=== PATIENT | male | born 1965 | race Caucasian/White ===

== ENCOUNTER 2017-12-28 17:02 | Inpatient (IN) | payer OTHER ==
[2017-12-28 17:42] VITALS: BMI 34.8
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
[2017-12-28] MEDS ORDERED: guaiFENesin/D-METHORPHAN HB 10 ML UNIT-DOSE CUPS PO PRN (20:06)
[2017-12-28] MEDS ORDERED: MENTHOL/PHENOL 1 EACH UD MM PRN (20:06)
[2017-12-28] MEDS ORDERED: LOPERAMIDE HCL 2 MG CAPSULE PO PRN (20:06)
[2017-12-28] MEDS ORDERED: ACETAMINOPHEN 325 MG TABLET (FP) PO PRN (20:06)
[2017-12-28] MEDS ORDERED: MAGNESIUM HYDROX 2400MG/30ML ORAL SUSPENSION 30 ML CUP PO PRN (20:06)
[2017-12-28] MEDS ORDERED: NICOTINE POLACRILEX 2 MG GUM BC PRN (20:06)
[2017-12-28] MEDS ORDERED: MAGNESIUM CITRATE 300 ML BOTTLE PO PRN (20:06)
[2017-12-28] MEDS ORDERED: P-EPHED 60MG/TRIPROLIDI 2.5MG TABLET PO PRN (20:06)
[2017-12-28] MEDS ORDERED: MAG HYDROX/AL HYDROX/SIMETH 30 ML UNIT-DOSE CUP PO PRN (20:06)
[2017-12-28] MEDS ORDERED: TUBERCULIN PPD 5 TU/0.1ML VIAL ID ONE (22:36)
[2017-12-28] MEDS: hydrOXYzine PAMOATE 50 MG CAPSULE (FP) PO PRN (22:38)
[2017-12-28] MEDS: THIAMINE HCL 100 MG TABLET (FP) PO SCH (22:38)
[2017-12-28] MEDS: MELATONIN 5 MG TABLETS PO PRN (22:38)
[2017-12-28] MEDS: FLUTICASONE/SALMETEROL 100 MCG/50 MCG DISKUS IH SCH (22:43)
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
--- NOTE | 2017-12-29 09:49 | EKG ---
Test Reason : Blood Pressure : / mmHG Vent. Rate : 068 BPM Atrial Rate : 068 BPM P-R Int : 158 ms QRS Dur : 092 ms QT Int : 410 ms P-R-T Axes : 028 003 010 degrees QTc Int : 435 ms NORMAL SINUS RHYTHM NORMAL ECG NO PREVIOUS ECGS AVAILABLE Confirmed by JESUS SULLIVAN MD ([id number]) on 12/29/2017 9:49:18 AM Referred By: Confirmed By:JESUS SULLIVAN MD
[2017-12-29] MEDS: NICOTINE 21 MG/24 HOURS TOPICAL PATCH TD SCH (10:06)
[2017-12-29] MEDS: PANTOPRAZOLE 20 MG TABLET (FP) PO SCH (10:06)
[2017-12-29] MEDS: PRENATAL VITAMINS W/ FOLIC ACID TABLET (FP) PO SCH (10:06)
[2017-12-29] MEDS: TAMSULOSIN HCL 0.4 MG CAP.ER.24H (FP) PO SCH (10:06)
[2017-12-29] MEDS: FLUTICASONE/SALMETEROL 100 MCG/50 MCG DISKUS IH SCH ×2 (12:45→21:41)
[2017-12-29] MEDS: PATIENT'S OWN MEDICATION (NON-FORMULARY) (Beclomethasone Dipropionate [Qvar Redihaler] 10. IH SCH ×2 (12:47→21:40)
[2017-12-29 15:35] LABS: HEMATOCRIT 37.9 % (35.4-49); MCH 30.3 pg (25.7-33.7); MCHC 34.3 g/dl (32.0-35.9); MEAN CELL VOLUME 88.3 fl (80-96); MEAN PLT VOLUME 9.2 fl (7.5-11.1); PLATELET COUNT 165 K/MM3 (134-434); RDW 13.2 % (11.9-15.9); WHITE BLOOD COUNT 5.3 K/mm3 (4.0-10.0)
[2017-12-29 17:33] LABS: ALBUMIN 3.7 g/dl (3.4-5.0); ANION GAP 6 (8-16); BLOOD UREA NITROGEN 14 mg/dL (7-18); CALCIUM 8.3 mg/dL (8.5-10.1); CHLORIDE 104 mmol/L (98-107); CO2 29 mmol/L (21-32); GLUCOSE,RANDOM 175 mg/dL (74-106); POTASSIUM 3.7 mmol/L (3.5-5.1); SODIUM 139 mmol/L (136-145)
[2017-12-29 17:38] LABS: ALK PHOS 75 U/L (45-117); BILIRUBIN,TOTAL 0.4 mg/dL (0.2-1.0); CREATININE 0.9 mg/dL (0.7-1.3); SGOT/AST 15 U/L (15-37); SGPT/ALT 14 U/L (12-78); TOT PROT 6.8 g/dl (6.4-8.2)
[2017-12-29] MEDS: OLANZapine 5 MG TABLET PO SCH (21:39)
[2017-12-29] MEDS: MONTELUKAST NA 10 MG TABLET PO SCH (21:39)
[2017-12-29] MEDS: THIAMINE HCL 100 MG TABLET (FP) PO SCH (21:39)
[2017-12-29] MEDS: traZODone HCL 100 MG TABLET (FP) PO SCH (21:39)
[2017-12-29] MEDS: hydrOXYzine PAMOATE 50 MG CAPSULE (FP) PO PRN (21:39)
[2017-12-30] MEDS: TAMSULOSIN HCL 0.4 MG CAP.ER.24H (FP) PO SCH (07:41)
[2017-12-30] MEDS: PRENATAL VITAMINS W/ FOLIC ACID TABLET (FP) PO SCH (10:09)
[2017-12-30] MEDS: PANTOPRAZOLE 20 MG TABLET (FP) PO SCH (10:09)
[2017-12-30] MEDS: PATIENT'S OWN MEDICATION (NON-FORMULARY) (Beclomethasone Dipropionate [Qvar Redihaler] 10. IH SCH ×2 (10:09→21:41)
[2017-12-30] MEDS: FLUTICASONE/SALMETEROL 100 MCG/50 MCG DISKUS IH SCH ×2 (10:10→21:41)
[2017-12-30] MEDS: NICOTINE 21 MG/24 HOURS TOPICAL PATCH TD SCH (10:10)
[2017-12-30 16:03] LABS: URINE APPEARANCE CLEAR; URINE BILIRUBIN NEGATIVE (<2.0 mg/dL); URINE COLOR LTYELLOW; URINE GLUCOSE (UA) NEGATIVE (NEGATIVE); URINE KETONE NEGATIVE (NEGATIVE); URINE LEUK ESTERASE NEGATIVE (NEGATIVE); URINE NITRITE NEGATIVE (NEGATIVE); URINE PROTEIN NEGATIVE (NEGATIVE); URINE UROBILINOGEN NEGATIVE mg/dL (0.2-1.0)
[2017-12-30] MEDS: OLANZapine 5 MG TABLET PO SCH (21:41)
[2017-12-30] MEDS: traZODone HCL 100 MG TABLET (FP) PO SCH (21:41)
[2017-12-30] MEDS: THIAMINE HCL 100 MG TABLET (FP) PO SCH (21:41)
[2017-12-30] MEDS: MONTELUKAST NA 10 MG TABLET PO SCH (21:41)
[2017-12-31] MEDS: TAMSULOSIN HCL 0.4 MG CAP.ER.24H (FP) PO SCH (07:32)
[2017-12-31] MEDS: IBUPROFEN 400 MG TABLET (FP) PO PRN (10:23)
[2017-12-31] MEDS: PATIENT'S OWN MEDICATION (NON-FORMULARY) (Beclomethasone Dipropionate [Qvar Redihaler] 10. IH SCH ×2 (10:23→21:35)
[2017-12-31] MEDS: PANTOPRAZOLE 20 MG TABLET (FP) PO SCH (10:23)
[2017-12-31] MEDS: NICOTINE 21 MG/24 HOURS TOPICAL PATCH TD SCH (10:23)
[2017-12-31] MEDS: FLUTICASONE/SALMETEROL 100 MCG/50 MCG DISKUS IH SCH ×2 (10:23→21:35)
[2017-12-31] MEDS: PRENATAL VITAMINS W/ FOLIC ACID TABLET (FP) PO SCH (10:23)
[2017-12-31] MEDS ORDERED: PT OWN MED DRAWER 7, Y5N ONE (20:15)
[2017-12-31] MEDS: traZODone HCL 100 MG TABLET (FP) PO SCH (21:35)
[2017-12-31] MEDS: MONTELUKAST NA 10 MG TABLET PO SCH (21:35)
[2017-12-31] MEDS: THIAMINE HCL 100 MG TABLET (FP) PO SCH (21:35)
[2017-12-31] MEDS: OLANZapine 5 MG TABLET PO SCH (21:35)
[2017-12-31] MEDS: MELATONIN 5 MG TABLETS PO PRN (21:36)
[2018-01-01] MEDS: TAMSULOSIN HCL 0.4 MG CAP.ER.24H (FP) PO SCH (08:30)
[2018-01-01] MEDS ORDERED: PT OWN MED DRAWER 7, Y5N ONE (08:49)
[2018-01-01] MEDS: PRENATAL VITAMINS W/ FOLIC ACID TABLET (FP) PO SCH (09:59)
[2018-01-01] MEDS: NICOTINE 21 MG/24 HOURS TOPICAL PATCH TD SCH (09:59)
[2018-01-01] MEDS: PANTOPRAZOLE 20 MG TABLET (FP) PO SCH (10:00)
[2018-01-01] MEDS: FLUTICASONE/SALMETEROL 100 MCG/50 MCG DISKUS IH SCH ×2 (10:00→22:09)
[2018-01-01] MEDS: PATIENT'S OWN MEDICATION (NON-FORMULARY) (Beclomethasone Dipropionate [Qvar Redihaler] 10. IH SCH ×2 (10:00→22:09)
[2018-01-01] MEDS: IBUPROFEN 400 MG TABLET (FP) PO PRN (16:52)
[2018-01-01] MEDS: hydrOXYzine PAMOATE 50 MG CAPSULE (FP) PO PRN (16:52)
[2018-01-01] MEDS: MONTELUKAST NA 10 MG TABLET PO SCH (21:32)
[2018-01-01] MEDS: traZODone HCL 100 MG TABLET (FP) PO SCH (21:32)
[2018-01-01] MEDS: THIAMINE HCL 100 MG TABLET (FP) PO SCH (21:32)
[2018-01-01] MEDS: MELATONIN 5 MG TABLETS PO PRN (21:32)
[2018-01-01] MEDS: OLANZapine 5 MG TABLET PO SCH (21:32)
[2018-01-02] MEDS: TAMSULOSIN HCL 0.4 MG CAP.ER.24H (FP) PO SCH (08:45)
[2018-01-02] MEDS: PANTOPRAZOLE 20 MG TABLET (FP) PO SCH (10:03)
[2018-01-02] MEDS: PRENATAL VITAMINS W/ FOLIC ACID TABLET (FP) PO SCH (10:03)
[2018-01-02] MEDS: NICOTINE 21 MG/24 HOURS TOPICAL PATCH TD SCH (10:04)
[2018-01-02] MEDS: FLUTICASONE/SALMETEROL 100 MCG/50 MCG DISKUS IH SCH ×2 (10:04→21:17)
[2018-01-02] MEDS: PATIENT'S OWN MEDICATION (NON-FORMULARY) (Beclomethasone Dipropionate [Qvar Redihaler] 10. IH SCH ×2 (10:04→21:17)
[2018-01-02] MEDS ORDERED: PT OWN MED DRAWER 7, Y5N ONE (18:04)
[2018-01-02] MEDS: THIAMINE HCL 100 MG TABLET (FP) PO SCH (21:17)
[2018-01-02] MEDS: OLANZapine 5 MG TABLET PO SCH (21:17)
[2018-01-02] MEDS: MONTELUKAST NA 10 MG TABLET PO SCH (21:17)
[2018-01-02] MEDS: traZODone HCL 100 MG TABLET (FP) PO SCH (21:17)
[2018-01-03] MEDS: TAMSULOSIN HCL 0.4 MG CAP.ER.24H (FP) PO SCH (08:40)
[2018-01-03] MEDS: PANTOPRAZOLE 20 MG TABLET (FP) PO SCH (09:51)
[2018-01-03] MEDS: PRENATAL VITAMINS W/ FOLIC ACID TABLET (FP) PO SCH (09:51)
[2018-01-03] MEDS: NICOTINE 21 MG/24 HOURS TOPICAL PATCH TD SCH (09:52)
[2018-01-03] MEDS: PATIENT'S OWN MEDICATION (NON-FORMULARY) (Beclomethasone Dipropionate [Qvar Redihaler] 10. IH SCH ×2 (09:52→21:15)
[2018-01-03] MEDS: FLUTICASONE/SALMETEROL 100 MCG/50 MCG DISKUS IH SCH ×2 (09:53→21:15)
[2018-01-03] MEDS: traZODone HCL 100 MG TABLET (FP) PO SCH (21:15)
[2018-01-03] MEDS: THIAMINE HCL 100 MG TABLET (FP) PO SCH (21:15)
[2018-01-03] MEDS: MELATONIN 5 MG TABLETS PO PRN (21:15)
[2018-01-03] MEDS: OLANZapine 5 MG TABLET PO SCH (21:15)
[2018-01-03] MEDS: MONTELUKAST NA 10 MG TABLET PO SCH (21:15)
[2018-01-04] MEDS: TAMSULOSIN HCL 0.4 MG CAP.ER.24H (FP) PO SCH (07:42)
[2018-01-04] MEDS ORDERED: PT OWN MED DRAWER 7, Y5N ONE ×2 (08:43→20:07)
[2018-01-04] MEDS: NICOTINE 21 MG/24 HOURS TOPICAL PATCH TD SCH (09:41)
[2018-01-04] MEDS: PRENATAL VITAMINS W/ FOLIC ACID TABLET (FP) PO SCH (09:41)
[2018-01-04] MEDS: PANTOPRAZOLE 20 MG TABLET (FP) PO SCH (09:41)
[2018-01-04] MEDS: hydrOXYzine PAMOATE 50 MG CAPSULE (FP) PO PRN (09:42)
[2018-01-04] MEDS: PATIENT'S OWN MEDICATION (NON-FORMULARY) (Beclomethasone Dipropionate [Qvar Redihaler] 10. IH SCH ×2 (09:46→21:15)
[2018-01-04] MEDS: FLUTICASONE/SALMETEROL 100 MCG/50 MCG DISKUS IH SCH ×2 (09:46→21:14)
[2018-01-04] MEDS: OLANZapine 5 MG TABLET PO SCH (21:15)
[2018-01-04] MEDS: MONTELUKAST NA 10 MG TABLET PO SCH (21:15)
[2018-01-04] MEDS: THIAMINE HCL 100 MG TABLET (FP) PO SCH (21:15)
[2018-01-04] MEDS: traZODone HCL 100 MG TABLET (FP) PO SCH (21:15)
[2018-01-05] MEDS: TAMSULOSIN HCL 0.4 MG CAP.ER.24H (FP) PO SCH (07:40)
[2018-01-05] MEDS: FLUTICASONE/SALMETEROL 100 MCG/50 MCG DISKUS IH SCH ×2 (09:46→21:10)
[2018-01-05] MEDS: PATIENT'S OWN MEDICATION (NON-FORMULARY) (Beclomethasone Dipropionate [Qvar Redihaler] 10. IH SCH ×2 (09:46→21:10)
[2018-01-05] MEDS: PRENATAL VITAMINS W/ FOLIC ACID TABLET (FP) PO SCH (09:46)
[2018-01-05] MEDS: NICOTINE 21 MG/24 HOURS TOPICAL PATCH TD SCH (09:46)
[2018-01-05] MEDS: PANTOPRAZOLE 20 MG TABLET (FP) PO SCH (09:46)
[2018-01-05] MEDS: THIAMINE HCL 100 MG TABLET (FP) PO SCH (21:10)
[2018-01-05] MEDS: MONTELUKAST NA 10 MG TABLET PO SCH (21:10)
[2018-01-05] MEDS: OLANZapine 5 MG TABLET PO SCH (21:10)
[2018-01-05] MEDS: traZODone HCL 100 MG TABLET (FP) PO SCH (21:10)
[2018-01-06] MEDS: TAMSULOSIN HCL 0.4 MG CAP.ER.24H (FP) PO SCH (08:45)
[2018-01-06] MEDS: NICOTINE 21 MG/24 HOURS TOPICAL PATCH TD SCH (10:05)
[2018-01-06] MEDS: PRENATAL VITAMINS W/ FOLIC ACID TABLET (FP) PO SCH (10:05)
[2018-01-06] MEDS: PANTOPRAZOLE 20 MG TABLET (FP) PO SCH (10:06)
[2018-01-06] MEDS: PATIENT'S OWN MEDICATION (NON-FORMULARY) (Beclomethasone Dipropionate [Qvar Redihaler] 10. IH SCH ×2 (10:06→21:56)
[2018-01-06] MEDS: FLUTICASONE/SALMETEROL 100 MCG/50 MCG DISKUS IH SCH ×2 (10:07→21:56)
[2018-01-06] MEDS: OLANZapine 5 MG TABLET PO SCH (21:55)
[2018-01-06] MEDS: traZODone HCL 100 MG TABLET (FP) PO SCH (21:55)
[2018-01-06] MEDS: MONTELUKAST NA 10 MG TABLET PO SCH (21:55)
[2018-01-06] MEDS: THIAMINE HCL 100 MG TABLET (FP) PO SCH (21:55)
[2018-01-07] MEDS: TAMSULOSIN HCL 0.4 MG CAP.ER.24H (FP) PO SCH (09:00)
[2018-01-07] MEDS: NICOTINE 21 MG/24 HOURS TOPICAL PATCH TD SCH (09:51)
[2018-01-07] MEDS: PANTOPRAZOLE 20 MG TABLET (FP) PO SCH (09:51)
[2018-01-07] MEDS: PRENATAL VITAMINS W/ FOLIC ACID TABLET (FP) PO SCH (09:51)
[2018-01-07] MEDS: FLUTICASONE/SALMETEROL 100 MCG/50 MCG DISKUS IH SCH ×2 (09:52→21:16)
[2018-01-07] MEDS: PATIENT'S OWN MEDICATION (NON-FORMULARY) (Beclomethasone Dipropionate [Qvar Redihaler] 10. IH SCH ×2 (09:52→21:16)
[2018-01-07] MEDS: hydrOXYzine PAMOATE 50 MG CAPSULE (FP) PO PRN (09:53)
[2018-01-07] MEDS: traZODone HCL 100 MG TABLET (FP) PO SCH (21:15)
[2018-01-07] MEDS: THIAMINE HCL 100 MG TABLET (FP) PO SCH (21:15)
[2018-01-07] MEDS: OLANZapine 5 MG TABLET PO SCH (21:16)
[2018-01-07] MEDS: MONTELUKAST NA 10 MG TABLET PO SCH (21:16)
[2018-01-07] MEDS: MELATONIN 5 MG TABLETS PO PRN (21:16)
[2018-01-08] MEDS: TAMSULOSIN HCL 0.4 MG CAP.ER.24H (FP) PO SCH (08:02)
[2018-01-08] MEDS: PANTOPRAZOLE 20 MG TABLET (FP) PO SCH (09:40)
[2018-01-08] MEDS: PRENATAL VITAMINS W/ FOLIC ACID TABLET (FP) PO SCH (09:40)
[2018-01-08] MEDS: FLUTICASONE/SALMETEROL 100 MCG/50 MCG DISKUS IH SCH ×2 (09:41→21:50)
[2018-01-08] MEDS: NICOTINE 21 MG/24 HOURS TOPICAL PATCH TD SCH (09:41)
[2018-01-08] MEDS: PATIENT'S OWN MEDICATION (NON-FORMULARY) (Beclomethasone Dipropionate [Qvar Redihaler] 10. IH SCH ×2 (09:41→21:51)
[2018-01-08] MEDS ORDERED: PT OWN MED DRAWER 7, Y5N ONE (19:41)
[2018-01-08] MEDS: THIAMINE HCL 100 MG TABLET (FP) PO SCH (21:49)
[2018-01-08] MEDS: MONTELUKAST NA 10 MG TABLET PO SCH (21:49)
[2018-01-08] MEDS: OLANZapine 5 MG TABLET PO SCH (21:49)
[2018-01-08] MEDS: traZODone HCL 100 MG TABLET (FP) PO SCH (21:50)
[2018-01-08] MEDS: MELATONIN 5 MG TABLETS PO PRN (21:51)
[2018-01-09] MEDS: TAMSULOSIN HCL 0.4 MG CAP.ER.24H (FP) PO SCH (09:37)
[2018-01-09] MEDS: PRENATAL VITAMINS W/ FOLIC ACID TABLET (FP) PO SCH (09:37)
[2018-01-09] MEDS: NICOTINE 21 MG/24 HOURS TOPICAL PATCH TD SCH (09:37)
[2018-01-09] MEDS: hydrOXYzine PAMOATE 50 MG CAPSULE (FP) PO PRN (09:38)
[2018-01-09] MEDS: PATIENT'S OWN MEDICATION (NON-FORMULARY) (Beclomethasone Dipropionate [Qvar Redihaler] 10. IH SCH ×2 (09:38→21:40)
[2018-01-09] MEDS: FLUTICASONE/SALMETEROL 100 MCG/50 MCG DISKUS IH SCH ×2 (09:38→21:40)
[2018-01-09] MEDS: PANTOPRAZOLE 20 MG TABLET (FP) PO SCH (09:38)
[2018-01-09] MEDS ORDERED: PT OWN MED DRAWER 7, Y5N ONE (19:11)
[2018-01-09] MEDS: OLANZapine 5 MG TABLET PO SCH (21:40)
[2018-01-09] MEDS: traZODone HCL 100 MG TABLET (FP) PO SCH (21:40)
[2018-01-09] MEDS: MONTELUKAST NA 10 MG TABLET PO SCH (21:40)
[2018-01-09] MEDS: THIAMINE HCL 100 MG TABLET (FP) PO SCH (21:40)
[2018-01-09] MEDS: MELATONIN 5 MG TABLETS PO PRN (21:41)
[2018-01-10] MEDS: TAMSULOSIN HCL 0.4 MG CAP.ER.24H (FP) PO SCH (08:41)
[2018-01-10] MEDS: PRENATAL VITAMINS W/ FOLIC ACID TABLET (FP) PO SCH (09:40)
[2018-01-10] MEDS: PANTOPRAZOLE 20 MG TABLET (FP) PO SCH (09:41)
[2018-01-10] MEDS: FLUTICASONE/SALMETEROL 100 MCG/50 MCG DISKUS IH SCH ×2 (09:41→21:17)
[2018-01-10] MEDS: PATIENT'S OWN MEDICATION (NON-FORMULARY) (Beclomethasone Dipropionate [Qvar Redihaler] 10. IH SCH ×2 (09:42→21:17)
[2018-01-10] MEDS: NICOTINE 21 MG/24 HOURS TOPICAL PATCH TD SCH (09:42)
[2018-01-10] MEDS: hydrOXYzine PAMOATE 50 MG CAPSULE (FP) PO PRN (09:43)
[2018-01-10] MEDS: MONTELUKAST NA 10 MG TABLET PO SCH (21:17)
[2018-01-10] MEDS: THIAMINE HCL 100 MG TABLET (FP) PO SCH (21:17)
[2018-01-10] MEDS: traZODone HCL 100 MG TABLET (FP) PO SCH (21:17)
[2018-01-10] MEDS: OLANZapine 5 MG TABLET PO SCH (21:17)
[2018-01-10] MEDS: MELATONIN 5 MG TABLETS PO PRN (21:18)
[2018-01-11] MEDS: TAMSULOSIN HCL 0.4 MG CAP.ER.24H (FP) PO SCH (08:37)
[2018-01-11] MEDS: PANTOPRAZOLE 20 MG TABLET (FP) PO SCH (09:37)
[2018-01-11] MEDS: PRENATAL VITAMINS W/ FOLIC ACID TABLET (FP) PO SCH (09:37)
[2018-01-11] MEDS: hydrOXYzine PAMOATE 50 MG CAPSULE (FP) PO PRN (09:38)
[2018-01-11] MEDS: NICOTINE 21 MG/24 HOURS TOPICAL PATCH TD SCH (10:45)
[2018-01-11] MEDS: PATIENT'S OWN MEDICATION (NON-FORMULARY) (Beclomethasone Dipropionate [Qvar Redihaler] 10. IH SCH ×2 (10:45→21:10)
[2018-01-11] MEDS: FLUTICASONE/SALMETEROL 100 MCG/50 MCG DISKUS IH SCH ×2 (10:45→21:10)
[2018-01-11] MEDS ORDERED: PT OWN MED DRAWER 7, Y5N ONE (20:27)
[2018-01-11] MEDS: THIAMINE HCL 100 MG TABLET (FP) PO SCH (21:09)
[2018-01-11] MEDS: MONTELUKAST NA 10 MG TABLET PO SCH (21:09)
[2018-01-11] MEDS: OLANZapine 5 MG TABLET PO SCH (21:09)
[2018-01-11] MEDS: traZODone HCL 100 MG TABLET (FP) PO SCH (21:09)
[2018-01-12] MEDS: TAMSULOSIN HCL 0.4 MG CAP.ER.24H (FP) PO SCH (08:36)
[2018-01-12] MEDS: PRENATAL VITAMINS W/ FOLIC ACID TABLET (FP) PO SCH (09:36)
[2018-01-12] MEDS: PANTOPRAZOLE 20 MG TABLET (FP) PO SCH (09:36)
[2018-01-12] MEDS: PATIENT'S OWN MEDICATION (NON-FORMULARY) (Beclomethasone Dipropionate [Qvar Redihaler] 10. IH SCH ×2 (09:36→21:51)
[2018-01-12] MEDS: NICOTINE 21 MG/24 HOURS TOPICAL PATCH TD SCH (09:36)
[2018-01-12] MEDS: FLUTICASONE/SALMETEROL 100 MCG/50 MCG DISKUS IH SCH ×2 (09:37→21:51)
[2018-01-12] MEDS ORDERED: PT OWN MED DRAWER 7, Y5N ONE (20:14)
[2018-01-12] MEDS: traZODone HCL 100 MG TABLET (FP) PO SCH (21:50)
[2018-01-12] MEDS: OLANZapine 5 MG TABLET PO SCH (21:51)
[2018-01-12] MEDS: MONTELUKAST NA 10 MG TABLET PO SCH (21:51)
[2018-01-12] MEDS: THIAMINE HCL 100 MG TABLET (FP) PO SCH (21:51)
[2018-01-12] MEDS: MELATONIN 5 MG TABLETS PO PRN (21:52)
[2018-01-13] MEDS: TAMSULOSIN HCL 0.4 MG CAP.ER.24H (FP) PO SCH (07:51)
[2018-01-13] MEDS ORDERED: PT OWN MED DRAWER 7, Y5N ONE (08:35)
[2018-01-13] MEDS: PATIENT'S OWN MEDICATION (NON-FORMULARY) (Beclomethasone Dipropionate [Qvar Redihaler] 10. IH SCH ×2 (09:32→21:17)
[2018-01-13] MEDS: PANTOPRAZOLE 20 MG TABLET (FP) PO SCH (09:32)
[2018-01-13] MEDS: FLUTICASONE/SALMETEROL 100 MCG/50 MCG DISKUS IH SCH ×2 (09:32→21:17)
[2018-01-13] MEDS: PRENATAL VITAMINS W/ FOLIC ACID TABLET (FP) PO SCH (09:32)
[2018-01-13] MEDS: NICOTINE 21 MG/24 HOURS TOPICAL PATCH TD SCH (09:32)
[2018-01-13] MEDS: traZODone HCL 100 MG TABLET (FP) PO SCH (21:16)
[2018-01-13] MEDS: MONTELUKAST NA 10 MG TABLET PO SCH (21:16)
[2018-01-13] MEDS: OLANZapine 5 MG TABLET PO SCH (21:17)
[2018-01-13] MEDS: THIAMINE HCL 100 MG TABLET (FP) PO SCH (21:17)
[2018-01-13] MEDS: MELATONIN 5 MG TABLETS PO PRN (21:19)
[2018-01-14] MEDS: TAMSULOSIN HCL 0.4 MG CAP.ER.24H (FP) PO SCH (07:37)
[2018-01-14] MEDS: NICOTINE 21 MG/24 HOURS TOPICAL PATCH TD SCH (09:36)
[2018-01-14] MEDS: PATIENT'S OWN MEDICATION (NON-FORMULARY) (Beclomethasone Dipropionate [Qvar Redihaler] 10. IH SCH ×2 (09:37→22:58)
[2018-01-14] MEDS: FLUTICASONE/SALMETEROL 100 MCG/50 MCG DISKUS IH SCH ×2 (09:37→23:02)
[2018-01-14] MEDS: PRENATAL VITAMINS W/ FOLIC ACID TABLET (FP) PO SCH (09:37)
[2018-01-14] MEDS: PANTOPRAZOLE 20 MG TABLET (FP) PO SCH (09:37)
[2018-01-14] MEDS: hydrOXYzine PAMOATE 50 MG CAPSULE (FP) PO PRN ×2 (09:38→15:03)
[2018-01-14] MEDS: THIAMINE HCL 100 MG TABLET (FP) PO SCH (22:56)
[2018-01-14] MEDS: OLANZapine 5 MG TABLET PO SCH (22:56)
[2018-01-14] MEDS: MONTELUKAST NA 10 MG TABLET PO SCH (22:56)
[2018-01-14] MEDS: traZODone HCL 100 MG TABLET (FP) PO SCH (22:59)
[2018-01-15] MEDS: TAMSULOSIN HCL 0.4 MG CAP.ER.24H (FP) PO SCH (07:37)
[2018-01-15] MEDS: PRENATAL VITAMINS W/ FOLIC ACID TABLET (FP) PO SCH (09:49)
[2018-01-15] MEDS: PANTOPRAZOLE 20 MG TABLET (FP) PO SCH (09:49)
[2018-01-15] MEDS: PATIENT'S OWN MEDICATION (NON-FORMULARY) (Beclomethasone Dipropionate [Qvar Redihaler] 10. IH SCH ×2 (09:50→23:49)
[2018-01-15] MEDS: NICOTINE 21 MG/24 HOURS TOPICAL PATCH TD SCH (09:50)
[2018-01-15] MEDS: FLUTICASONE/SALMETEROL 100 MCG/50 MCG DISKUS IH SCH ×2 (10:13→23:49)
[2018-01-15] MEDS: THIAMINE HCL 100 MG TABLET (FP) PO SCH (22:35)
[2018-01-15] MEDS: traZODone HCL 100 MG TABLET (FP) PO SCH (22:35)
[2018-01-15] MEDS: MONTELUKAST NA 10 MG TABLET PO SCH (22:35)
[2018-01-15] MEDS: OLANZapine 5 MG TABLET PO SCH (22:35)
[2018-01-16] MEDS: TAMSULOSIN HCL 0.4 MG CAP.ER.24H (FP) PO SCH (07:41)
[2018-01-16] MEDS: PANTOPRAZOLE 20 MG TABLET (FP) PO SCH (09:55)
[2018-01-16] MEDS: PRENATAL VITAMINS W/ FOLIC ACID TABLET (FP) PO SCH (09:55)
[2018-01-16] MEDS: PATIENT'S OWN MEDICATION (NON-FORMULARY) (Beclomethasone Dipropionate [Qvar Redihaler] 10. IH SCH ×2 (09:55→21:17)
[2018-01-16] MEDS: NICOTINE 21 MG/24 HOURS TOPICAL PATCH TD SCH (09:56)
[2018-01-16] MEDS: FLUTICASONE/SALMETEROL 100 MCG/50 MCG DISKUS IH SCH ×2 (10:50→21:17)
[2018-01-16] MEDS ORDERED: PT OWN MED DRAWER 7, Y5N ONE (20:13)
[2018-01-16] MEDS: THIAMINE HCL 100 MG TABLET (FP) PO SCH (21:16)
[2018-01-16] MEDS: traZODone HCL 100 MG TABLET (FP) PO SCH (21:16)
[2018-01-16] MEDS: OLANZapine 5 MG TABLET PO SCH (21:16)
[2018-01-16] MEDS: MONTELUKAST NA 10 MG TABLET PO SCH (21:16)
[2018-01-17] MEDS: PATIENT'S OWN MEDICATION (NON-FORMULARY) (Beclomethasone Dipropionate [Qvar Redihaler] 10. IH SCH ×2 (09:53→21:30)
[2018-01-17] MEDS: FLUTICASONE/SALMETEROL 100 MCG/50 MCG DISKUS IH SCH ×2 (09:53→21:30)
[2018-01-17] MEDS: TAMSULOSIN HCL 0.4 MG CAP.ER.24H (FP) PO SCH (09:53)
[2018-01-17] MEDS: PANTOPRAZOLE 20 MG TABLET (FP) PO SCH (09:53)
[2018-01-17] MEDS: PRENATAL VITAMINS W/ FOLIC ACID TABLET (FP) PO SCH (09:53)
[2018-01-17] MEDS: NICOTINE 21 MG/24 HOURS TOPICAL PATCH TD SCH (09:53)
[2018-01-17] MEDS ORDERED: PT OWN MED DRAWER 7, Y5N ONE (19:16)
[2018-01-17] MEDS: THIAMINE HCL 100 MG TABLET (FP) PO SCH (21:29)
[2018-01-17] MEDS: MONTELUKAST NA 10 MG TABLET PO SCH (21:29)
[2018-01-17] MEDS: OLANZapine 5 MG TABLET PO SCH (21:29)
[2018-01-17] MEDS: traZODone HCL 100 MG TABLET (FP) PO SCH (21:29)
[2018-01-17] MEDS: MELATONIN 5 MG TABLETS PO PRN (21:30)
[2018-01-18 06:49] VITALS: TEMP 98.3
[2018-01-18] MEDS: TAMSULOSIN HCL 0.4 MG CAP.ER.24H (FP) PO SCH (07:31)
[2018-01-18] MEDS: PANTOPRAZOLE 20 MG TABLET (FP) PO SCH (09:29)
[2018-01-18] MEDS: PRENATAL VITAMINS W/ FOLIC ACID TABLET (FP) PO SCH (09:29)
[2018-01-18] MEDS: NICOTINE 21 MG/24 HOURS TOPICAL PATCH TD SCH (09:30)
[2018-01-18] MEDS: PATIENT'S OWN MEDICATION (NON-FORMULARY) (Beclomethasone Dipropionate [Qvar Redihaler] 10. IH SCH ×2 (09:30→22:02)
[2018-01-18] MEDS: FLUTICASONE/SALMETEROL 100 MCG/50 MCG DISKUS IH SCH ×2 (09:30→22:02)
[2018-01-18] MEDS ORDERED: PT OWN MED DRAWER 7, Y5N ONE (19:10)
--- NOTE | 2018-01-18 19:36 | PN ---
Psychiatric Progress Note Vital Signs: Vital Signs Period Temp Pulse Resp BP Sys/Marina Pulse Ox Last 24 Hr 98.3 F 90 18 134/82 Date of Session: 01/18/18 Chief Complaint:: Discharge Note HPI: Patient addressing Opioid Dependence comorbid with Bipolar Disorder, Substance-Induced Mood Disorder and Substance-Induced Sleep Disorder ROS: Asthma, COPD, Hep C, HLD, Seizure Disorder Current Medications: Active Medications Generic Name Dose Route Start Last Admin Trade Name Freq PRN Reason Stop Dose Admin Acetaminophen 650 mg 12/28/17 20:06 12/29/17 10:07 Tylenol - PO 650 mg Q4H PRN Administration FEVER Al Hydroxide/Mg Hydroxide 30 ml 12/28/17 20:06 Mylanta Oral Suspension - PO Q6H PRN DYSPEPSIA Eucalyptus/Menthol/Phenol/Sorbitol 1 each 12/28/17 20:06 Cepastat Lozenge - MM Q4H PRN SORE THROAT Guaifenesin 10 ml 12/28/17 20:06 Robitussin Dm - PO Q6H PRN COUGH Hydroxyzine Pamoate 50 mg 12/28/17 20:06 01/14/18 15:03 Vistaril - PO 50 mg Q4H PRN Administration AGITATION Ibuprofen 400 mg 12/28/17 20:06 01/01/18 16:52 Motrin - PO 400 mg Q6H PRN Administration Pain level 4-6 Loperamide HCl 4 mg 12/28/17 20:06 Imodium - PO Q6H PRN DIARRHEA Magnesium Citrate 300 ml 12/28/17 20:06 Citroma - PO Q48H PRN CONSTIPATION Magnesium Hydroxide 30 ml 12/28/17 20:06 Milk Of Magnesia - PO DAILY PRN CONSTIPATION Melatonin 5 mg 12/28/17 22:00 01/17/18 21:30 Melatonin PO 5 mg HS PRN Administration INSOMNIA Montelukast Sodium 10 mg 12/29/17 22:00 01/17/18 21:29 Singulair - PO 10 mg HS EMANI Administration Nicotine 21 mg 12/29/17 10:00 01/18/18 09:30 Nicoderm Patch - TD Not Given DAILY EMANI Nicotine Polacrilex 2 mg 12/28/17 20:06 Nicorette Gum - BC Q2H PRN NICOTINE REPLACEMENT RX Non-Formulary Medication 10.6 gm 12/28/17 20:12 01/18/18 09:30 Beclomethasone Dipropionate [Qvar Redihaler] IH Not Given BID EMANI Olanzapine 5 mg 12/29/17 22:00 01/17/18 21:29 Zyprexa - PO 5 mg HS EMANI Administration Pantoprazole Sodium 20 mg 12/29/17 10:00 01/18/18 09:29 Protonix - PO 20 mg DAILY EMANI Administration Multivit/Folic Acid/Iron 1 tab 12/29/17 10:00 01/18/18 09:29 Vitamins ([facility]) - PO 1 tab DAILY EMANI Administration Pseudoephedrine/Triprolidine 1 combo 12/28/17 20:06 12/29/17 06:43 Actifed - PO 1 combo TID PRN Administration NASAL CONGESTION Fluticasone/Salmeterol 1 puff 12/28/17 22:00 01/18/18 09:30 Advair 100mcg/50mcg - IH Not Given BID EMANI Tamsulosin HCl 0.4 mg 12/29/17 08:30 01/18/18 07:31 Flomax - PO 0.4 mg DAILY@0830 EMANI Administration Thiamine HCl 100 mg 12/28/17 22:00 01/17/18 21:29 Vitamin B1 - PO 100 mg HS EMANI Administration Trazodone HCl 100 mg 12/29/17 22:00 01/17/18 21:29 Desyrel - PO 100 mg HS EMANI Administration Current Side Effect: No Lab tests ordered: Yes Lab tests reviewed: Yes Provider note:: Patient will complete this program on 01/19/18. He has met his treatment goals and will continue to address his issues in outpatient treatment at [facility] [place] at [address] [place] [id number]. Told feature writer that from his participation in this program, he has learned the importance of surrounding himself with a sober support network in order to maintain abstinence. He responded well to Zyprexa 5 mg po HS and Trazadone 100 mg po HS. Script for 30 days supply of medications will be electronically transmitted to [facility] at [address] [place] [address]. He is stable for discharge on 01/19/18 Total face to face time:: 35 Mental Status Exam - Mental Status Exam Alert and Oriented to: Time, Place, Person Cognitive Function: Fair Patient Appearance: Well Groomed Mood: Hopeful, Euthymic Affect: Appropriate Patient Behavior: Cooperative Speech Pattern: Clear Voice Loudness: Normal Thought Process: Intact Thought Disorder: Not Present Hallucinations: Denies Suicidal Ideation: Denies Homicidal Ideation: Denies Insight/Judgement: Fair Sleep: Fair Appetite: Good Muscle strength/Tone: Normal Gait/Station: Normal Psychiatric Treatment Plan - Problem List (1) Opioid dependence Current Visit: Yes (2) Bipolar disorder Current Visit: Yes (3) Substance induced mood disorder Current Visit: Yes (4) Substance-induced sleep disorder Current Visit: Yes (5) Asthma Current Visit: No Qualifiers: Asthma complication type: unspecified (6) COPD (chronic obstructive pulmonary disease) Current Visit: No Qualifiers: COPD type: unspecified COPD Qualified Code(s): J44.9 - Chronic obstructive pulmonary disease, unspecified (7) Hep C w/o coma, chronic Current Visit: No (8) Hyperlipemia Current Visit: Yes Qualifiers: Hyperlipidemia type: unspecified Qualified Code(s): E78.5 - Hyperlipidemia , unspecified (9) Seizure Current Visit: Yes Initial treatment plan: Patient will be discharged tomorrow and refer to [facility] for outpatient treatment
[2018-01-18] MEDS: OLANZapine 5 MG TABLET PO SCH (22:02)
[2018-01-18] MEDS: THIAMINE HCL 100 MG TABLET (FP) PO SCH (22:02)
[2018-01-18] MEDS: traZODone HCL 100 MG TABLET (FP) PO SCH (22:02)
[2018-01-18] MEDS: MONTELUKAST NA 10 MG TABLET PO SCH (22:02)
[2018-01-18] MEDS: MELATONIN 5 MG TABLETS PO PRN (22:03)
[2018-01-19 06:56] VITALS: BP 141/92; PULSE 93
[2018-01-19] MEDS: TAMSULOSIN HCL 0.4 MG CAP.ER.24H (FP) PO SCH (07:58)
[2018-01-19] MEDS: PATIENT'S OWN MEDICATION (NON-FORMULARY) (Beclomethasone Dipropionate [Qvar Redihaler] 10. IH SCH (09:34)
[2018-01-19] MEDS: FLUTICASONE/SALMETEROL 100 MCG/50 MCG DISKUS IH SCH (09:34)
[2018-01-19] MEDS: PRENATAL VITAMINS W/ FOLIC ACID TABLET (FP) PO SCH (09:34)
[2018-01-19] MEDS: NICOTINE 21 MG/24 HOURS TOPICAL PATCH TD SCH (09:34)
[2018-01-19] MEDS: PANTOPRAZOLE 20 MG TABLET (FP) PO SCH (09:34)
== END 2018-01-19 09:55 | disposition home or self-care (01) | DRG 772 ==
LOC: YASAS 17:02 → Y3W 18:17
PROVIDERS: ADMIT Psychiatry & Neurology Psychiatry; ATTEND Psychiatry & Neurology Psychiatry
PROC: HZ42ZZZ Group Counseling for Substance Abuse Treatment, Cognitive-Behavioral (ICD-10-PCS; principal; 2017-12-28)
DX: F11.20 Opioid dependence, uncomplicated (principal); F31.9 Bipolar disorder, unspecified; F19.24 Other psychoactive substance dependence with psychoactive substance-induced mood disorder; F19.282 Other psychoactive substance dependence with psychoactive substance-induced sleep disorder; F41.9 Anxiety disorder, unspecified; J45.909 Unspecified asthma, uncomplicated; J44.9 Chronic obstructive pulmonary disease, unspecified; E78.5 Hyperlipidemia, unspecified; E78.00 Pure hypercholesterolemia, unspecified; B18.2 Chronic viral hepatitis C; G40.509 Epileptic seizures related to external causes, not intractable, without status epilepticus; K21.9 Gastro-esophageal reflux disease without esophagitis; Z86.19 Personal history of other infectious and parasitic diseases; Z91.5 Personal history of self-harm
CPT/HCPCS: 36415; 80053; 81003; 82962; 85027; 86593; 93005; 93010

== ENCOUNTER 2020-09-30 09:26 | Inpatient (IN) | payer OTHER ==
[2020-09-30] MEDS ORDERED: METHADONE HCL 10 MG TABLET (FOR DETOX USE ONLY) PO ONE (12:17)
[2020-09-30] MEDS ORDERED: chlordiazePOXIDE HCL 25 MG CAPSULE PO PRN (12:17)
[2020-09-30] MEDS ORDERED: MAGNESIUM HYDROX 2400MG/30ML ORAL SUSPENSION 30 ML CUP PO PRN (12:17)
[2020-09-30] MEDS ORDERED: MENTHOL/PHENOL 1 EACH UD MM PRN (12:17)
[2020-09-30] MEDS ORDERED: METHOCARBAMOL 500 MG TABLET PO PRN (12:17)
[2020-09-30] MEDS ORDERED: IBUPROFEN 400 MG TABLET (FP) PO PRN (12:17)
[2020-09-30] MEDS ORDERED: cloNIDine HCL 0.1 MG TABLET PO PRN (12:17)
[2020-09-30] MEDS ORDERED: ACETAMINOPHEN 325 MG TABLET (FP) PO PRN ×2 (12:17)
[2020-09-30] MEDS ORDERED: MAGNESIUM CITRATE 300 ML BOTTLE PO PRN (12:17)
[2020-09-30] MEDS ORDERED: BISMUTH SUBSALICYLATE 262 MG/15 ML BTL PO PRN (12:17)
[2020-09-30] MEDS ORDERED: ONDANSETRON *ODT* 4 MG TABLET SL PRN (12:17)
[2020-09-30 12:32] VITALS: BMI 36.9
[2020-09-30] MEDS ORDERED: METHADONE HCL 10 MG TABLET (FOR DETOX USE ONLY) ONE (13:09)
[2020-09-30] MEDS ORDERED: chlordiazePOXIDE HCL 25 MG CAPSULE ONE (13:09)
[2020-09-30] MEDS: hydrOXYzine PAMOATE 25 MG CAPSULE (FP) PO SCH ×3 (13:35→22:15)
[2020-09-30 14:18] LABS: HEMATOCRIT 40.2 % (35.4-49); MCH 29.9 pg (25.7-33.7); MCHC 34.7 g/dl (32.0-35.9); MEAN CELL VOLUME 86.2 fl (80-96); MEAN PLT VOLUME 8.4 fl (7.5-11.1); PLATELET COUNT 224 K/MM3 (134-434); RBC 4.67 M/mm3 (4.00-5.60); RDW 13.5 % (11.9-15.9); WHITE BLOOD COUNT 7.7 K/mm3 (4.0-10.0)
[2020-09-30 14:22] LABS: BLOOD UREA NITROGEN 13.8 mg/dL (7-18)
[2020-09-30 14:25] LABS: CALCIUM 8.8 mg/dL (8.5-10.1); CREATININE 1.1 mg/dL (0.55-1.3)
[2020-09-30 14:26] LABS: BILIRUBIN,TOTAL 0.6 mg/dL (0.2-1); TOT PROT 7.4 g/dl (6.4-8.2)
[2020-09-30] MEDS: ARIPiprazole 10 MG TABLET PO SCH (14:38)
[2020-09-30] MEDS: MAG HYDROX/AL HYDROX/SIMETH 30 ML UNIT-DOSE CUP PO PRN (14:56)
[2020-09-30] MEDS: chlordiazePOXIDE HCL 25 MG CAPSULE PO SCH ×2 (17:31→22:15)
[2020-09-30] MEDS: traZODone HCL 100 MG TABLET (FP) PO SCH (22:15)
[2020-09-30] MEDS: THIAMINE HCL 100 MG TABLET (FP) PO SCH (22:18)
[2020-09-30] MEDS: MELATONIN 5 MG TABLETS PO SCH (22:18)
[2020-10-01] MEDS: chlordiazePOXIDE HCL 25 MG CAPSULE PO SCH ×4 (05:22→22:38)
[2020-10-01] MEDS: hydrOXYzine PAMOATE 25 MG CAPSULE (FP) PO SCH ×5 (05:23→22:39)
[2020-10-01] MEDS ORDERED: METHADONE HCL 5 MG TABLET (FOR DETOX USE ONLY) ONE (08:56)
[2020-10-01] MEDS ORDERED: METHADONE HCL 10 MG TABLET (FOR DETOX USE ONLY) ONE (08:57)
[2020-10-01] MEDS ORDERED: METHADONE (DETOX) 20 MG, METHADONE (DETOX) 5 MG PO ONE (10:00)
[2020-10-01] MEDS: ARIPiprazole 10 MG TABLET PO SCH (10:06)
[2020-10-01] MEDS: PRENATAL VITAMINS W/ FOLIC ACID TABLET (FP) PO SCH (10:07)
[2020-10-01] MEDS: MAG HYDROX/AL HYDROX/SIMETH 30 ML UNIT-DOSE CUP PO PRN ×2 (16:09→22:41)
[2020-10-01] MEDS: traZODone HCL 100 MG TABLET (FP) PO SCH (22:38)
[2020-10-01] MEDS: THIAMINE HCL 100 MG TABLET (FP) PO SCH (22:39)
[2020-10-01] MEDS: MELATONIN 5 MG TABLETS PO SCH (22:39)
[2020-10-02] MEDS: chlordiazePOXIDE HCL 25 MG CAPSULE PO SCH ×4 (05:31→22:32)
[2020-10-02] MEDS: hydrOXYzine PAMOATE 25 MG CAPSULE (FP) PO SCH ×5 (05:33→22:32)
[2020-10-02] MEDS ORDERED: METHADONE HCL 10 MG TABLET (FOR DETOX USE ONLY) PO ONE (10:00)
[2020-10-02] MEDS: PRENATAL VITAMINS W/ FOLIC ACID TABLET (FP) PO SCH (10:06)
[2020-10-02] MEDS: ARIPiprazole 10 MG TABLET PO SCH (10:07)
[2020-10-02] MEDS ORDERED: ALBUTEROL SO4 HFA INHALER IH ONE (18:38)
[2020-10-02] MEDS: ALBUTEROL SO4 HFA INHALER IH PRN (18:48)
[2020-10-02] MEDS: traZODone HCL 100 MG TABLET (FP) PO SCH (22:32)
[2020-10-02] MEDS: MELATONIN 5 MG TABLETS PO SCH (22:32)
[2020-10-02] MEDS: THIAMINE HCL 100 MG TABLET (FP) PO SCH (22:32)
[2020-10-03] MEDS ORDERED: chlordiazePOXIDE HCL 10 MG CAPSULE PO PRN
[2020-10-03] MEDS: chlordiazePOXIDE HCL 10 MG CAPSULE PO SCH ×4 (05:58→22:03)
[2020-10-03] MEDS: hydrOXYzine PAMOATE 25 MG CAPSULE (FP) PO SCH ×5 (05:58→22:02)
[2020-10-03] MEDS ORDERED: METHADONE HCL 10 MG TABLET (FOR DETOX USE ONLY) ONE (09:38)
[2020-10-03] MEDS ORDERED: METHADONE HCL 5 MG TABLET (FOR DETOX USE ONLY) ONE (09:38)
[2020-10-03] MEDS ORDERED: METHADONE (DETOX) 10 MG, METHADONE (DETOX) 5 MG PO ONE (10:00)
[2020-10-03] MEDS: ARIPiprazole 10 MG TABLET PO SCH (10:32)
[2020-10-03] MEDS: PRENATAL VITAMINS W/ FOLIC ACID TABLET (FP) PO SCH (10:32)
[2020-10-03] MEDS: ALBUTEROL SO4 HFA INHALER IH PRN (15:33)
[2020-10-03] MEDS: MAG HYDROX/AL HYDROX/SIMETH 30 ML UNIT-DOSE CUP PO PRN (16:08)
[2020-10-03] MEDS: THIAMINE HCL 100 MG TABLET (FP) PO SCH (22:02)
[2020-10-03] MEDS: MELATONIN 5 MG TABLETS PO SCH (22:02)
[2020-10-03] MEDS: traZODone HCL 100 MG TABLET (FP) PO SCH (22:02)
[2020-10-04] MEDS: chlordiazePOXIDE HCL 10 MG CAPSULE PO SCH ×2 (05:54→17:50)
[2020-10-04] MEDS: hydrOXYzine PAMOATE 25 MG CAPSULE (FP) PO SCH ×5 (05:54→22:32)
[2020-10-04] MEDS ORDERED: METHADONE HCL 10 MG TABLET (FOR DETOX USE ONLY) PO ONE (10:00)
[2020-10-04] MEDS: ARIPiprazole 10 MG TABLET PO SCH (11:09)
[2020-10-04] MEDS: PRENATAL VITAMINS W/ FOLIC ACID TABLET (FP) PO SCH (11:10)
[2020-10-04] MEDS: MAG HYDROX/AL HYDROX/SIMETH 30 ML UNIT-DOSE CUP PO PRN (20:44)
[2020-10-04] MEDS ORDERED: traZODone HCL 50 MG TABLET (FP) ONE (21:42)
[2020-10-04] MEDS: THIAMINE HCL 100 MG TABLET (FP) PO SCH (22:31)
[2020-10-04] MEDS: traZODone HCL 100 MG TABLET (FP) PO SCH (22:32)
[2020-10-04] MEDS: MELATONIN 5 MG TABLETS PO SCH (22:32)
[2020-10-05] MEDS ORDERED: chlordiazePOXIDE HCL 10 MG CAPSULE PO ONE (05:00)
[2020-10-05] MEDS: hydrOXYzine PAMOATE 25 MG CAPSULE (FP) PO SCH ×5 (05:39→22:21)
[2020-10-05] MEDS ORDERED: METHADONE HCL 5 MG TABLET (FOR DETOX USE ONLY) PO ONE (06:00)
[2020-10-05] MEDS: ARIPiprazole 10 MG TABLET PO SCH (10:06)
[2020-10-05] MEDS: PRENATAL VITAMINS W/ FOLIC ACID TABLET (FP) PO SCH (10:06)
[2020-10-05] MEDS: traZODone HCL 100 MG TABLET (FP) PO SCH (22:21)
[2020-10-05] MEDS: THIAMINE HCL 100 MG TABLET (FP) PO SCH (22:21)
[2020-10-05] MEDS: MELATONIN 5 MG TABLETS PO SCH (22:22)
[2020-10-05 23:28] VITALS: TEMP 97.3
[2020-10-06] MEDS: hydrOXYzine PAMOATE 25 MG CAPSULE (FP) PO SCH (05:58)
[2020-10-06] MEDS ORDERED: METHADONE HCL 5 MG TABLET (FOR DETOX USE ONLY) PO ONE (06:00)
[2020-10-06 07:44] VITALS: BP 114/69; PULSE 55
== END 2020-10-06 08:38 | disposition home or self-care (01) | DRG 773 ==
LOC: YASAS 09:26 → Y6N 12:41
PROVIDERS: ADMIT Allergy & Immunology; ATTEND Allergy & Immunology
PROC: HZ2ZZZZ Detoxification Services for Substance Abuse Treatment (ICD-10-PCS; principal; 2020-09-30)
DX: F11.23 Opioid dependence with withdrawal (principal); F10.230 Alcohol dependence with withdrawal, uncomplicated; F14.10 Cocaine abuse, uncomplicated; F19.282 Other psychoactive substance dependence with psychoactive substance-induced sleep disorder; F19.24 Other psychoactive substance dependence with psychoactive substance-induced mood disorder; F31.9 Bipolar disorder, unspecified; F41.9 Anxiety disorder, unspecified; E78.5 Hyperlipidemia, unspecified; J44.9 Chronic obstructive pulmonary disease, unspecified; B18.2 Chronic viral hepatitis C; Z62.810 Personal history of physical and sexual abuse in childhood; Z86.19 Personal history of other infectious and parasitic diseases; Z86.69 Personal history of other diseases of the nervous system and sense organs; Z56.0 Unemployment, unspecified
CPT/HCPCS: 36415; 80053; 82947; 85027; 86780; 93005; 93010; C9803; U0003

== ENCOUNTER 2021-02-01 11:43 | Inpatient (IN) | payer OTHER ==
[2021-02-01 12:29] VITALS: BMI 37.8
[2021-02-01] MEDS ORDERED: MAG HYDROX/AL HYDROX/SIMETH 30 ML UNIT-DOSE CUP PO PRN (13:01)
[2021-02-01] MEDS ORDERED: MENTHOL/PHENOL 1 EACH UD MM PRN (13:01)
[2021-02-01] MEDS ORDERED: IBUPROFEN 400 MG TABLET (FP) PO PRN (13:01)
[2021-02-01] MEDS ORDERED: ONDANSETRON *ODT* 4 MG TABLET SL PRN (13:01)
[2021-02-01] MEDS ORDERED: MAGNESIUM HYDROX 2400MG/30ML ORAL SUSPENSION 30 ML CUP PO PRN (13:01)
[2021-02-01] MEDS ORDERED: ACETAMINOPHEN 325 MG TABLET (FP) PO PRN ×2 (13:01)
[2021-02-01] MEDS ORDERED: BISMUTH SUBSALICYLATE 524 MG/30 ML PO PRN (13:01)
[2021-02-01] MEDS ORDERED: MAGNESIUM CITRATE 300 ML BOTTLE PO PRN (13:01)
[2021-02-01] MEDS ORDERED: METHADONE HCL 10 MG TABLET (FOR DETOX USE ONLY) PO ONE (13:30)
[2021-02-01] MEDS ORDERED: ALBUTEROL SO4 HFA INHALER IH PRN (13:44)
[2021-02-01] MEDS: hydrOXYzine PAMOATE 25 MG CAPSULE (FP) PO SCH ×3 (13:56→22:06)
[2021-02-01] MEDS: PRENATAL VITAMINS W/ FOLIC ACID TABLET (FP) PO SCH (13:56)
[2021-02-01] MEDS: METHOCARBAMOL 500 MG TABLET PO PRN (13:56)
[2021-02-01] MEDS: cloNIDine HCL 0.1 MG TABLET PO PRN (13:58)
[2021-02-01] MEDS: traZODone HCL 50 MG TABLET (FP) PO SCH (22:06)
[2021-02-01] MEDS: THIAMINE HCL 100 MG TABLET (FP) PO SCH (22:06)
[2021-02-01] MEDS: MELATONIN 5 MG TABLETS PO SCH (22:06)
[2021-02-02] MEDS: hydrOXYzine PAMOATE 25 MG CAPSULE (FP) PO SCH ×5 (05:27→22:57)
[2021-02-02] MEDS: cloNIDine HCL 0.1 MG TABLET PO PRN (06:15)
[2021-02-02] MEDS ORDERED: METHADONE HCL 10 MG TABLET (FOR DETOX USE ONLY) ONE (08:43)
[2021-02-02] MEDS ORDERED: METHADONE HCL 5 MG TABLET (FOR DETOX USE ONLY) ONE (08:43)
[2021-02-02] MEDS: PANTOPRAZOLE 20 MG TABLET PO SCH (08:59)
[2021-02-02] MEDS: PRENATAL VITAMINS W/ FOLIC ACID TABLET (FP) PO SCH (08:59)
[2021-02-02] MEDS: ARIPiprazole 5 MG TABLET PO SCH (09:00)
[2021-02-02] MEDS ORDERED: METHADONE (DETOX) 20 MG, METHADONE (DETOX) 5 MG PO ONE (10:00)
[2021-02-02] MEDS: diazePAM 5 MG TABLET PO PRN ×3 (10:12→20:36)
[2021-02-02 11:39] LABS: BILIRUBIN,TOTAL 0.5 mg/dL (0.2-1); TOT PROT 8.1 g/dl (6.4-8.2)
[2021-02-02 11:40] LABS: ALBUMIN 4.3 g/dl (3.4-5.0); BLOOD UREA NITROGEN 7.8 mg/dL (7-18)
[2021-02-02 11:41] LABS: CALCIUM 9.8 mg/dL (8.5-10.1); HEMATOCRIT 41.3 % (35.4-49); HEMOGLOBIN 14.1 GM/dL (11.7-16.9); MCH 29.7 pg (25.7-33.7); MCHC 34.1 g/dl (32.0-35.9); MEAN CELL VOLUME 87.1 fl (80-96); PLATELET COUNT 222 K/MM3 (134-434); RBC 4.75 M/mm3 (4.00-5.60); RDW 13.1 % (11.9-15.9); WHITE BLOOD COUNT 5.8 K/mm3 (4.0-10.0)
[2021-02-02 11:43] LABS: CREATININE 1.2 mg/dL (0.55-1.3)
[2021-02-02] MEDS: METHOCARBAMOL 500 MG TABLET PO PRN (20:37)
[2021-02-02] MEDS: traZODone HCL 50 MG TABLET (FP) PO SCH (22:20)
[2021-02-02] MEDS: MELATONIN 5 MG TABLETS PO SCH (22:20)
[2021-02-02] MEDS: THIAMINE HCL 100 MG TABLET (FP) PO SCH (22:20)
[2021-02-03] MEDS: diazePAM 5 MG TABLET PO PRN ×5 (01:08→22:37)
[2021-02-03] MEDS: hydrOXYzine PAMOATE 25 MG CAPSULE (FP) PO SCH ×5 (06:48→22:36)
[2021-02-03] MEDS ORDERED: METHADONE HCL 10 MG TABLET (FOR DETOX USE ONLY) PO ONE (10:00)
[2021-02-03] MEDS: METHOCARBAMOL 500 MG TABLET PO PRN (10:07)
[2021-02-03] MEDS: ARIPiprazole 5 MG TABLET PO SCH (10:07)
[2021-02-03] MEDS: PANTOPRAZOLE 20 MG TABLET PO SCH (10:07)
[2021-02-03] MEDS: PRENATAL VITAMINS W/ FOLIC ACID TABLET (FP) PO SCH (10:07)
[2021-02-03] MEDS: traZODone HCL 50 MG TABLET (FP) PO SCH (22:36)
[2021-02-03] MEDS: MELATONIN 5 MG TABLETS PO SCH (22:36)
[2021-02-03] MEDS: THIAMINE HCL 100 MG TABLET (FP) PO SCH (22:36)
[2021-02-04] MEDS: hydrOXYzine PAMOATE 25 MG CAPSULE (FP) PO SCH ×5 (05:49→23:03)
[2021-02-04] MEDS: diazePAM 5 MG TABLET PO PRN ×4 (05:50→18:41)
[2021-02-04] MEDS ORDERED: METHADONE HCL 10 MG TABLET (FOR DETOX USE ONLY) ONE (09:04)
[2021-02-04] MEDS ORDERED: METHADONE HCL 5 MG TABLET (FOR DETOX USE ONLY) ONE (09:05)
[2021-02-04] MEDS ORDERED: METHADONE (DETOX) 10 MG, METHADONE (DETOX) 5 MG PO ONE (10:00)
[2021-02-04] MEDS: ARIPiprazole 5 MG TABLET PO SCH (10:14)
[2021-02-04] MEDS: PRENATAL VITAMINS W/ FOLIC ACID TABLET (FP) PO SCH (10:14)
[2021-02-04] MEDS: PANTOPRAZOLE 20 MG TABLET PO SCH (10:14)
[2021-02-04 15:38] LABS: EPI CELLS 1 /uL (0-25.1); HYALINE CASTS 15 /uL (0-3.1); PH,URINE 6.5 (5.0-8.0); URINE APPEARANCE CLOUDY; URINE BACTERIA 2250 /uL (0-1359); URINE BILIRUBIN NEGATIVE (NEGATIVE); URINE COLOR YELLOW; URINE GLUCOSE (UA) NEGATIVE (NEGATIVE); URINE KETONE NEGATIVE (NEGATIVE); URINE LEUK ESTERASE 2+ (NEGATIVE); URINE NITRITE NEGATIVE (NEGATIVE); URINE PROTEIN NEGATIVE (NEGATIVE); URINE RBC 7 /uL (0-23.9); URINE UROBILINOGEN 0.2 mg/dL (0.2-1.0); URINE WBC 367 /uL (0-25.8)
[2021-02-04] MEDS: traZODone HCL 50 MG TABLET (FP) PO SCH (23:03)
[2021-02-04] MEDS: THIAMINE HCL 100 MG TABLET (FP) PO SCH (23:03)
[2021-02-04] MEDS: MELATONIN 5 MG TABLETS PO SCH (23:03)
[2021-02-05] MEDS: hydrOXYzine PAMOATE 25 MG CAPSULE (FP) PO SCH ×5 (06:01→22:21)
[2021-02-05] MEDS: diazePAM 5 MG TABLET PO PRN (07:21)
[2021-02-05] MEDS: PRENATAL VITAMINS W/ FOLIC ACID TABLET (FP) PO SCH (09:32)
[2021-02-05] MEDS: ARIPiprazole 5 MG TABLET PO SCH (09:32)
[2021-02-05] MEDS: PANTOPRAZOLE 20 MG TABLET PO SCH (09:33)
[2021-02-05] MEDS: METHOCARBAMOL 500 MG TABLET PO PRN ×2 (09:34→22:19)
[2021-02-05] MEDS ORDERED: METHADONE HCL 10 MG TABLET (FOR DETOX USE ONLY) PO ONE (10:00)
[2021-02-05] MEDS: MELATONIN 5 MG TABLETS PO SCH (22:19)
[2021-02-05] MEDS: traZODone HCL 50 MG TABLET (FP) PO SCH (22:19)
[2021-02-05] MEDS: THIAMINE HCL 100 MG TABLET (FP) PO SCH (22:19)
[2021-02-06] MEDS: CEPHALEXIN MONOHYDRATE 500 MG CAPSULE (UD) PO SCH ×2 (00:02→05:57)
[2021-02-06] MEDS: hydrOXYzine PAMOATE 25 MG CAPSULE (FP) PO SCH (05:57)
[2021-02-06] MEDS ORDERED: METHADONE HCL 5 MG TABLET (FOR DETOX USE ONLY) PO ONE (06:00)
[2021-02-06 09:17] VITALS: BP 116/73; PULSE 65; TEMP 96.9
[2021-02-06] MEDS ORDERED: DOXYCYCLINE HYCLATE 100 MG CAPSULE PO SCH (10:00)
== END 2021-02-06 09:59 | disposition other institution (70) | DRG 773 ==
LOC: YASAS 11:43 → Y3N 13:27
PROVIDERS: ADMIT Allergy & Immunology; ATTEND Allergy & Immunology
PROC: HZ2ZZZZ Detoxification Services for Substance Abuse Treatment (ICD-10-PCS; principal; 2021-02-01)
DX: F11.23 Opioid dependence with withdrawal (principal); F10.230 Alcohol dependence with withdrawal, uncomplicated; F14.10 Cocaine abuse, uncomplicated; F19.24 Other psychoactive substance dependence with psychoactive substance-induced mood disorder; F31.9 Bipolar disorder, unspecified; F41.9 Anxiety disorder, unspecified; E78.5 Hyperlipidemia, unspecified; J44.9 Chronic obstructive pulmonary disease, unspecified; N39.0 Urinary tract infection, site not specified; N40.0 Benign prostatic hyperplasia without lower urinary tract symptoms; Z62.810 Personal history of physical and sexual abuse in childhood; E66.9 Obesity, unspecified; Z68.37 Body mass index [BMI] 37.0-37.9, adult; Z86.69 Personal history of other diseases of the nervous system and sense organs; Z86.19 Personal history of other infectious and parasitic diseases; Z91.14 Patient's other noncompliance with medication regimen
CPT/HCPCS: 36415; 80053; 81003; 82947; 85027; 86780; C9803; J0735; U0003; U0005

== ENCOUNTER 2021-02-05 10:44 | Emergency (ER) | payer OTHER ==
[2021-02-05 11:12] VITALS: BMI 38.4
[2021-02-05 11:48] LABS: BASO % 0.6 % (0-2.0); HEMATOCRIT 41.3 % (35.4-49); HEMOGLOBIN 14.4 GM/dL (11.7-16.9); LYMPH % 23.1 % (8-40); MCH 29.4 pg (25.7-33.7); MCHC 34.9 g/dl (32.0-35.9); MEAN CELL VOLUME 84.2 fl (80-96); MEAN PLT VOLUME 7.7 fl (7.5-11.1); NEUT % 66.3 % (42.8-82.8); PLATELET COUNT 217 K/MM3 (134-434); WHITE BLOOD COUNT 9.3 K/mm3 (4.0-10.0)
[2021-02-05 11:57] LABS: INR 1.03 (0.83-1.09); PROTHROMBIN TIME (PATIENT) 12.7 SEC (9.7-13.0)
[2021-02-05 11:59] LABS: ACTIVATED PTT 30.4 SECONDS (25.2-36.5)
[2021-02-05 12:09] LABS: ALBUMIN 3.9 g/dl (3.4-5.0); BLOOD UREA NITROGEN 12.5 mg/dL (7-18); CALCIUM 8.6 mg/dL (8.5-10.1)
[2021-02-05 12:14] LABS: BILIRUBIN,TOTAL 0.3 mg/dL (0.2-1); TOT PROT 7.5 g/dl (6.4-8.2)
[2021-02-05 13:44] LABS: EPI CELLS 16 /uL (0-25.1); HYALINE CASTS 21 /uL (0-3.1); PH,URINE 5.5 (5.0-8.0); URINE APPEARANCE TURBID; URINE BACTERIA 17 /uL (0-1359); URINE BILIRUBIN NEGATIVE (NEGATIVE); URINE COLOR ORANGE; URINE GLUCOSE (UA) NEGATIVE (NEGATIVE); URINE KETONE NEGATIVE (NEGATIVE); URINE LEUK ESTERASE 3+ (NEGATIVE); URINE NITRITE NEGATIVE (NEGATIVE); URINE PROTEIN 3+ (NEGATIVE); URINE UROBILINOGEN 0.2 mg/dL (0.2-1.0); URINE WBC 15684 /uL (0-25.8)
[2021-02-05 14:35] LABS: URINE RBC 450.8 /uL (0-23.9)
[2021-02-05] MEDS ORDERED: CEFTRIAXONE 1 GM in DEXTROSE 5%-WATER - 100 ML IVPB ONE (15:05)
[2021-02-05] MEDS ORDERED: DOXYCYCLINE HYCLATE 100 MG CAPSULE PO ONE ×2 (15:37→15:38)
[2021-02-05 16:21] LABS: SYPHILIS W/ RPR CONF NON-REACTIVE (NONREACTIVE)
[2021-02-05 19:00] VITALS: BP 128/71; PULSE 77; TEMP 98.3
[2021-02-08 01:03] LABS: HIV INTERPRETATION NEGATIVE (NEGATIVE)
== END 2021-02-05 18:31 | disposition home or self-care (01) ==
LOC: JER 10:44
DX: F11.20 Opioid dependence, uncomplicated (principal); R31.9 Hematuria, unspecified
CPT/HCPCS: 36415; 74176-TC; 80053; 81003; 85025; 85610; 85730; 86780; 86850; 86900; 86901; 87086; 87389; 87491; 87591; 87661; 99285-25

== ENCOUNTER 2022-01-11 13:49 | Inpatient (IN) | payer OTHER ==
[2022-01-11] MEDS ORDERED: IBUPROFEN 400 MG TABLET (FP) PO PRN (14:48)
[2022-01-11] MEDS ORDERED: MAG HYDROX/AL HYDROX/SIMETH 30 ML UNIT-DOSE CUP PO PRN (14:48)
[2022-01-11] MEDS ORDERED: MAGNESIUM HYDROX 2400MG/30ML ORAL SUSPENSION 30 ML CUP PO PRN (14:48)
[2022-01-11] MEDS ORDERED: ACETAMINOPHEN 325 MG TABLET (FP) PO PRN ×2 (14:48)
[2022-01-11] MEDS ORDERED: BISMUTH SUBSALICYLATE 524 MG/30 ML PO PRN (14:48)
[2022-01-11] MEDS ORDERED: BUPRENORPHINE HCL 150 MCG, BUPRENORPHINE HCL 75 MCG BC ONE (14:48)
[2022-01-11] MEDS ORDERED: LOPERAMIDE HCL 2 MG CAPSULE PO PRN (14:48)
[2022-01-11] MEDS ORDERED: ONDANSETRON *ODT* 4 MG TABLET SL PRN (14:48)
[2022-01-11] MEDS ORDERED: BUPRENORPHINE HCL 150 MCG, BUPRENORPHINE HCL 75 MCG BC PRN (14:48)
[2022-01-11] MEDS ORDERED: MAGNESIUM CITRATE 300 ML BOTTLE PO PRN (14:48)
[2022-01-11] MEDS ORDERED: cloNIDine HCL 0.1 MG TABLET PO ONE (14:48)
[2022-01-11] MEDS ORDERED: BENZOCAINE/MENTHOL (CHLORASEPTIC ) LOZENGE MM PRN (14:48)
[2022-01-11] MEDS ORDERED: DICYCLOMINE HCL 10 MG CAPSULE PO PRN (14:48)
[2022-01-11 15:13] VITALS: BMI 34.7
[2022-01-11] MEDS ORDERED: BUPRENORPHINE HCL 75 MCG FILM BC ONE (15:57)
[2022-01-11] MEDS ORDERED: BUPRENORPHINE HCL 150 MCG FILM BC ONE (15:57)
[2022-01-11] MEDS: PRENATAL VITAMINS W/ FOLIC ACID TABLET (FP) PO SCH (16:02)
[2022-01-11] MEDS: cloNIDine HCL 0.1 MG TABLET PO PRN ×2 (16:51→22:23)
[2022-01-11] MEDS: METHOCARBAMOL 500 MG TABLET PO PRN (16:51)
[2022-01-11] MEDS: diazePAM 5 MG TABLET PO PRN ×2 (16:51→22:23)
[2022-01-11] MEDS: hydrOXYzine PAMOATE 25 MG CAPSULE (FP) PO SCH ×2 (17:59→22:20)
[2022-01-11] MEDS: THIAMINE HCL 100 MG TABLET (FP) PO SCH (22:20)
[2022-01-11] MEDS: MELATONIN 5 MG TABLETS PO SCH (22:20)
[2022-01-12] MEDS ORDERED: BUPRENORPHINE HCL 150 MCG, BUPRENORPHINE HCL 75 MCG BC PRN
[2022-01-12] MEDS ORDERED: BUPRENORPHINE HCL 150 MCG FILM BC ONE ×2 (04:39→17:16)
[2022-01-12] MEDS ORDERED: BUPRENORPHINE HCL 75 MCG FILM BC ONE ×2 (04:39→17:16)
[2022-01-12] MEDS: BUPRENORPHINE HCL 150 MCG, BUPRENORPHINE HCL 75 MCG BC SCH ×2 (05:01→18:45)
[2022-01-12] MEDS: hydrOXYzine PAMOATE 25 MG CAPSULE (FP) PO SCH ×5 (05:01→22:14)
[2022-01-12] MEDS: diazePAM 5 MG TABLET PO PRN ×3 (06:32→18:45)
[2022-01-12] MEDS ORDERED: ALBUTEROL SO4 HFA INHALER IH PRN (10:16)
[2022-01-12] MEDS: PRENATAL VITAMINS W/ FOLIC ACID TABLET (FP) PO SCH (10:16)
[2022-01-12] MEDS: cloNIDine HCL 0.1 MG TABLET PO PRN (10:16)
[2022-01-12] MEDS: METHOCARBAMOL 500 MG TABLET PO PRN (10:16)
[2022-01-12 10:25] LABS: HEMATOCRIT 40.3 % (35.4-49); HEMOGLOBIN 14.1 GM/dL (11.7-16.9); MCH 29.2 pg (25.7-33.7); MCHC 35.1 g/dl (32.0-35.9); MEAN CELL VOLUME 83.2 fl (80-96); MEAN PLT VOLUME 8.2 fl (7.5-11.1); PLATELET COUNT 190 10^3/uL (134-434); RBC 4.85 M/mm3 (4.00-5.60); RDW 12.9 % (11.9-15.9); WHITE BLOOD COUNT 4.2 K/mm3 (4.0-10.0)
[2022-01-12 10:29] LABS: ALBUMIN 4.1 g/dl (3.4-5.0); BLOOD UREA NITROGEN 9.2 mg/dL (7-18); CALCIUM 9.4 mg/dL (8.5-10.1)
[2022-01-12 10:31] LABS: CREATININE 0.9 mg/dL (0.55-1.3)
[2022-01-12 10:33] LABS: BILIRUBIN,TOTAL 0.6 mg/dL (0.2-1)
[2022-01-12 10:35] LABS: TOT PROT 7.5 g/dl (6.4-8.2)
[2022-01-12] MEDS: THIAMINE HCL 100 MG TABLET (FP) PO SCH (22:14)
[2022-01-12] MEDS: MELATONIN 5 MG TABLETS PO SCH (22:15)
[2022-01-13] MEDS: diazePAM 5 MG TABLET PO PRN ×4 (04:25→22:17)
[2022-01-13] MEDS: BUPRENORPHINE HCL 450 MCG FILM BC SCH ×2 (05:10→17:43)
[2022-01-13] MEDS: hydrOXYzine PAMOATE 25 MG CAPSULE (FP) PO SCH ×5 (05:10→22:17)
[2022-01-13] MEDS: PRENATAL VITAMINS W/ FOLIC ACID TABLET (FP) PO SCH (10:05)
[2022-01-13] MEDS: METHOCARBAMOL 500 MG TABLET PO PRN (10:05)
[2022-01-13] MEDS: cloNIDine HCL 0.1 MG TABLET PO PRN (17:43)
[2022-01-13] MEDS: MELATONIN 5 MG TABLETS PO SCH (22:17)
[2022-01-13] MEDS: THIAMINE HCL 100 MG TABLET (FP) PO SCH (22:17)
[2022-01-14 00:06] LABS: SARS-CoV-2 NAA Not Detected (Not Detected)
[2022-01-14] MEDS: BUPRENORPHINE/NALOXONE 4 MG/1 MG FILM PACKET SL SCH ×2 (05:04→17:16)
[2022-01-14] MEDS: diazePAM 5 MG TABLET PO PRN ×4 (05:06→22:19)
[2022-01-14] MEDS: hydrOXYzine PAMOATE 25 MG CAPSULE (FP) PO SCH ×5 (05:18→22:20)
[2022-01-14] MEDS: PRENATAL VITAMINS W/ FOLIC ACID TABLET (FP) PO SCH (10:10)
[2022-01-14] MEDS: METHOCARBAMOL 500 MG TABLET PO PRN ×2 (10:10→17:16)
[2022-01-14] MEDS: cloNIDine HCL 0.1 MG TABLET PO PRN (17:16)
[2022-01-14] MEDS: MELATONIN 5 MG TABLETS PO SCH (22:20)
[2022-01-14] MEDS: THIAMINE HCL 100 MG TABLET (FP) PO SCH (22:20)
[2022-01-15] MEDS: diazePAM 5 MG TABLET PO PRN (05:00)
[2022-01-15] MEDS: hydrOXYzine PAMOATE 25 MG CAPSULE (FP) PO SCH ×2 (05:01→09:29)
[2022-01-15] MEDS ORDERED: BUPRENORPHINE/NALOXONE 8 MG/2 MG FILM PACKET SL ONE (06:00)
[2022-01-15 09:15] VITALS: BP 123/74; PULSE 70; TEMP 96.8
[2022-01-15] MEDS: PRENATAL VITAMINS W/ FOLIC ACID TABLET (FP) PO SCH (09:29)
== END 2022-01-15 09:18 | disposition other institution (70) | DRG 773 ==
LOC: YASAS 13:49 → Y6N 15:29
PROVIDERS: ADMIT Allergy & Immunology; ATTEND Surgery
PROC: HZ2ZZZZ Detoxification Services for Substance Abuse Treatment (ICD-10-PCS; principal; 2022-01-11)
DX: F10.230 Alcohol dependence with withdrawal, uncomplicated (principal); F11.20 Opioid dependence, uncomplicated; F13.20 Sedative, hypnotic or anxiolytic dependence, uncomplicated; F14.10 Cocaine abuse, uncomplicated; F19.280 Other psychoactive substance dependence with psychoactive substance-induced anxiety disorder; F19.24 Other psychoactive substance dependence with psychoactive substance-induced mood disorder; F31.9 Bipolar disorder, unspecified; F41.9 Anxiety disorder, unspecified; F41.0 Panic disorder [episodic paroxysmal anxiety]; J44.9 Chronic obstructive pulmonary disease, unspecified; E78.5 Hyperlipidemia, unspecified; N40.0 Benign prostatic hyperplasia without lower urinary tract symptoms; Z28.310 Unvaccinated for COVID-19
CPT/HCPCS: 36415; 80053; 85027; 86780; C9803-CS; J0735; U0003; U0005

== ENCOUNTER 2022-06-29 12:27 | Inpatient (IN) | payer OTHER ==
[2022-06-29 13:05] VITALS: BMI 35.4
[2022-06-29] MEDS ORDERED: NALOXONE HCL (KLOXXADO) 8 MG SPRAY NS PRN (14:19)
[2022-06-29] MEDS ORDERED: ACETAMINOPHEN 325 MG TABLET (FP) PO PRN ×2 (14:19)
[2022-06-29] MEDS ORDERED: NICOTINE 10 MG CARTRIDGE (INHALER) IH PRN (14:19)
[2022-06-29] MEDS ORDERED: BENZOCAINE/MENTHOL (CHLORASEPTIC ) LOZENGE MM PRN (14:19)
[2022-06-29] MEDS ORDERED: ONDANSETRON *ODT* 4 MG TABLET SL PRN (14:19)
[2022-06-29] MEDS ORDERED: MAGNESIUM CITRATE 300 ML BOTTLE PO PRN (14:19)
[2022-06-29] MEDS ORDERED: IBUPROFEN 600 MG TABLET (FP) PO PRN (14:19)
[2022-06-29] MEDS ORDERED: BISMUTH SUBSALICYLATE 524 MG/30 ML PO PRN (14:19)
[2022-06-29] MEDS ORDERED: MAGNESIUM HYDROX 2400MG/30ML ORAL SUSPENSION 30 ML CUP PO PRN (14:19)
[2022-06-29] MEDS ORDERED: IBUPROFEN 400 MG TABLET (FP) PO PRN (14:19)
[2022-06-29] MEDS ORDERED: DICYCLOMINE HCL 10 MG CAPSULE PO PRN (14:19)
[2022-06-29] MEDS ORDERED: LOPERAMIDE HCL 2 MG CAPSULE PO PRN (14:19)
[2022-06-29] MEDS ORDERED: ALBUTEROL SO4 HFA INHALER IH PRN (14:22)
[2022-06-29] MEDS ORDERED: hydrOXYzine PAMOATE 25 MG CAPSULE (FP) PO ONE (15:06)
[2022-06-29] MEDS: hydrOXYzine PAMOATE 25 MG CAPSULE (FP) PO PRN (15:09)
[2022-06-29 17:03] LABS: CALCIUM 8.8 mg/dL (8.5-10.1)
[2022-06-29 17:04] LABS: BLOOD UREA NITROGEN 11.6 mg/dL (7-18)
[2022-06-29 17:07] LABS: CREATININE 0.8 mg/dL (0.55-1.3)
[2022-06-29 17:08] LABS: BILIRUBIN,TOTAL 0.3 mg/dL (0.2-1); TOT PROT 7.6 g/dl (6.4-8.2)
[2022-06-29 17:13] LABS: HEMATOCRIT 37.9 % (35.4-49); HEMOGLOBIN 12.8 GM/dL (11.7-16.9); MCHC 33.9 g/dl (32.0-35.9); MEAN CELL VOLUME 85.7 fl (80-96); PLATELET COUNT 214 10^3/uL (134-434); RBC 4.42 M/mm3 (4.00-5.60); RDW 13.1 % (11.9-15.9); WHITE BLOOD COUNT 6.4 K/mm3 (4.0-10.0)
[2022-06-29] MEDS: THIAMINE HCL 100 MG TABLET (FP) PO SCH (22:06)
[2022-06-29] MEDS: MELATONIN 5 MG TABLETS PO SCH (22:07)
[2022-06-29] MEDS: MAG HYDROX/AL HYDROX/SIMETH 30 ML UNIT-DOSE CUP PO PRN (22:35)
[2022-06-30] MEDS: hydrOXYzine PAMOATE 25 MG CAPSULE (FP) PO PRN ×2 (05:07→17:23)
[2022-06-30] MEDS: METHOCARBAMOL 500 MG TABLET PO PRN ×2 (05:07→17:23)
[2022-06-30] MEDS ORDERED: methaDONE HCL 10 MG TABLET (FOR DETOX USE ONLY) PO ONE (10:45)
[2022-06-30] MEDS: diazePAM 5 MG TABLET PO SCH ×3 (10:46→22:33)
[2022-06-30] MEDS: PRENATAL VITAMINS W/ FOLIC ACID TABLET (FP) PO SCH (10:47)
[2022-06-30] MEDS: diazePAM 5 MG TABLET PO PRN ×2 (14:09→22:31)
[2022-06-30] MEDS: cloNIDine HCL 0.1 MG TABLET PO PRN (17:23)
[2022-06-30] MEDS: THIAMINE HCL 100 MG TABLET (FP) PO SCH (22:31)
[2022-06-30] MEDS: MELATONIN 5 MG TABLETS PO SCH (22:31)
[2022-07-01] MEDS: diazePAM 5 MG TABLET PO PRN ×3 (02:21→12:05)
[2022-07-01] MEDS: diazePAM 5 MG TABLET PO SCH ×4 (05:18→22:15)
[2022-07-01] MEDS: PRENATAL VITAMINS W/ FOLIC ACID TABLET (FP) PO SCH (10:11)
[2022-07-01] MEDS: MAG HYDROX/AL HYDROX/SIMETH 30 ML UNIT-DOSE CUP PO PRN (10:12)
[2022-07-01 12:03] LABS: BLOOD UREA NITROGEN 13.2 mg/dL (7-18); CALCIUM 9.4 mg/dL (8.5-10.1)
[2022-07-01 12:07] LABS: CREATININE 0.9 mg/dL (0.55-1.3)
[2022-07-01] MEDS: MELATONIN 5 MG TABLETS PO SCH (22:15)
[2022-07-01] MEDS: THIAMINE HCL 100 MG TABLET (FP) PO SCH (22:15)
[2022-07-01] MEDS: cloNIDine HCL 0.1 MG TABLET PO PRN (22:17)
[2022-07-02] MEDS: diazePAM 5 MG TABLET PO PRN ×4 (01:29→19:57)
[2022-07-02] MEDS: diazePAM 5 MG TABLET PO SCH ×3 (05:02→23:02)
[2022-07-02] MEDS ORDERED: methaDONE HCL 10 MG TABLET (FOR DETOX USE ONLY) PO ONE (10:00)
[2022-07-02] MEDS: PRENATAL VITAMINS W/ FOLIC ACID TABLET (FP) PO SCH (10:12)
[2022-07-02] MEDS: THIAMINE HCL 100 MG TABLET (FP) PO SCH (22:25)
[2022-07-02] MEDS: SUVOREXANT 10 MG TABLET PO PRN (22:27)
[2022-07-02] MEDS: MAG HYDROX/AL HYDROX/SIMETH 30 ML UNIT-DOSE CUP PO PRN (23:34)
[2022-07-03] MEDS: diazePAM 5 MG TABLET PO PRN ×4 (01:03→22:29)
[2022-07-03] MEDS: diazePAM 5 MG TABLET PO SCH ×2 (05:26→17:02)
[2022-07-03] MEDS: PRENATAL VITAMINS W/ FOLIC ACID TABLET (FP) PO SCH (10:19)
[2022-07-03] MEDS: hydrOXYzine PAMOATE 25 MG CAPSULE (FP) PO PRN (10:20)
[2022-07-03] MEDS: METHOCARBAMOL 500 MG TABLET PO PRN (10:20)
[2022-07-03] MEDS: SUVOREXANT 10 MG TABLET PO PRN (22:23)
[2022-07-03] MEDS: THIAMINE HCL 100 MG TABLET (FP) PO SCH (22:23)
[2022-07-04] MEDS: hydrOXYzine PAMOATE 25 MG CAPSULE (FP) PO PRN ×2 (05:22→10:08)
[2022-07-04] MEDS ORDERED: diazePAM 5 MG TABLET PO ONE (06:00)
[2022-07-04 08:11] VITALS: RESP 18
[2022-07-04 09:27] VITALS: BP 137/79; PULSE 82; TEMP 96.9
[2022-07-04] MEDS ORDERED: methaDONE HCL 10 MG TABLET (FOR DETOX USE ONLY) PO ONE (10:00)
[2022-07-04] MEDS: PRENATAL VITAMINS W/ FOLIC ACID TABLET (FP) PO SCH (10:07)
[2022-07-04] MEDS: METHOCARBAMOL 500 MG TABLET PO PRN (10:08)
== END 2022-07-04 11:34 | disposition home or self-care (01) | DRG 773 ==
LOC: YASAS 12:27 → Y6N 15:06
PROVIDERS: ADMIT Allergy & Immunology; ATTEND Surgery
PROC: HZ2ZZZZ Detoxification Services for Substance Abuse Treatment (ICD-10-PCS; principal; 2022-06-29)
DX: F11.23 Opioid dependence with withdrawal (principal); F10.230 Alcohol dependence with withdrawal, uncomplicated; F13.10 Sedative, hypnotic or anxiolytic abuse, uncomplicated; F19.282 Other psychoactive substance dependence with psychoactive substance-induced sleep disorder; F19.280 Other psychoactive substance dependence with psychoactive substance-induced anxiety disorder; F19.24 Other psychoactive substance dependence with psychoactive substance-induced mood disorder; F31.9 Bipolar disorder, unspecified; G47.00 Insomnia, unspecified; I10 Essential (primary) hypertension; J44.9 Chronic obstructive pulmonary disease, unspecified; N40.0 Benign prostatic hyperplasia without lower urinary tract symptoms; J30.9 Allergic rhinitis, unspecified; R73.9 Hyperglycemia, unspecified; Z62.810 Personal history of physical and sexual abuse in childhood; Z86.69 Personal history of other diseases of the nervous system and sense organs; Z86.19 Personal history of other infectious and parasitic diseases; Z28.310 Unvaccinated for COVID-19; Z28.9 Immunization not carried out for unspecified reason
CPT/HCPCS: 36415; 80048; 80053; 82947; 82962; 85027; 86780; C9803-CS; U0003; U0005

== ENCOUNTER 2022-08-31 09:53 | Inpatient (IN) | payer OTHER ==
[2022-08-31 12:32] VITALS: BMI 36.4
[2022-08-31] MEDS ORDERED: IBUPROFEN 600 MG TABLET (FP) PO PRN (12:47)
[2022-08-31] MEDS ORDERED: MAGNESIUM HYDROX 2400MG/30ML ORAL SUSPENSION 30 ML CUP PO PRN (12:47)
[2022-08-31] MEDS ORDERED: BISMUTH SUBSALICYLATE 524 MG/30 ML PO PRN (12:47)
[2022-08-31] MEDS ORDERED: cloNIDine HCL 0.1 MG TABLET PO PRN ×2 (12:47→15:10)
[2022-08-31] MEDS ORDERED: BENZOCAINE/MENTHOL (CHLORASEPTIC ) LOZENGE MM PRN (12:47)
[2022-08-31] MEDS ORDERED: ACETAMINOPHEN 325 MG TABLET (FP) PO PRN ×2 (12:47)
[2022-08-31] MEDS ORDERED: NALOXONE HCL (KLOXXADO) 8 MG SPRAY NS PRN (12:47)
[2022-08-31] MEDS ORDERED: ONDANSETRON *ODT* 4 MG TABLET SL PRN (12:47)
[2022-08-31] MEDS ORDERED: LOPERAMIDE HCL 2 MG CAPSULE PO PRN (12:47)
[2022-08-31] MEDS ORDERED: IBUPROFEN 400 MG TABLET (FP) PO PRN (12:47)
[2022-08-31] MEDS ORDERED: DICYCLOMINE HCL 10 MG CAPSULE PO PRN (12:47)
[2022-08-31] MEDS ORDERED: POLYETHYLENE GLYCOL (HEALTHYLAX) 3350 17 GM PACKET PO PRN (12:47)
[2022-08-31] MEDS ORDERED: NICOTINE 10 MG CARTRIDGE (INHALER) IH PRN (12:47)
[2022-08-31] MEDS ORDERED: ALBUTEROL SO4 HFA INHALER IH PRN (12:50)
[2022-08-31] MEDS ORDERED: chlordiazePOXIDE HCL 25 MG CAPSULE PO PRN (12:59)
[2022-08-31] MEDS ORDERED: methaDONE HCL 10 MG TABLET (FOR DETOX USE ONLY) PO ONE (13:30)
[2022-08-31] MEDS ORDERED: cloNIDine HCL 0.1 MG TABLET PO ONE (14:00)
[2022-08-31] MEDS ORDERED: methaDONE HCL 10 MG TABLET (FOR DETOX USE ONLY) ONE (14:46)
[2022-08-31] MEDS: PRENATAL VITAMINS W/ FOLIC ACID TABLET (FP) PO SCH (15:04)
[2022-08-31] MEDS: hydrOXYzine PAMOATE 25 MG CAPSULE (FP) PO PRN (15:04)
[2022-08-31] MEDS ORDERED: cloNIDine-TTS 0.1 MG/24 HRS PATCH.TDWK TD SCH (16:00)
[2022-08-31] MEDS: chlordiazePOXIDE HCL 25 MG CAPSULE PO SCH ×2 (17:15→22:16)
[2022-08-31 18:02] LABS: HEMOGLOBIN 13.9 GM/dL (11.7-16.9); MCH 28.1 pg (25.7-33.7); MCHC 33.1 g/dl (32.0-35.9); MEAN CELL VOLUME 84.9 fl (80-96); PLATELET COUNT 237 10^3/uL (134-434); RBC 4.95 M/mm3 (4.00-5.60); RDW 13.6 % (11.9-15.9); WHITE BLOOD COUNT 6.7 K/mm3 (4.0-10.0)
[2022-08-31 18:10] LABS: CALCIUM 9.2 mg/dL (8.5-10.1)
[2022-08-31 18:11] LABS: ALBUMIN 4.3 g/dl (3.4-5.0)
[2022-08-31 18:16] LABS: BILIRUBIN,TOTAL 0.5 mg/dL (0.2-1); TOT PROT 8.1 g/dl (6.4-8.2)
[2022-08-31] MEDS ORDERED: MELATONIN 5 MG TABLETS PO SCH (22:00)
[2022-08-31] MEDS: THIAMINE HCL 100 MG TABLET (FP) PO SCH (22:16)
[2022-09-01] MEDS: chlordiazePOXIDE HCL 25 MG CAPSULE PO SCH ×4 (05:32→22:27)
[2022-09-01] MEDS: METHOCARBAMOL 500 MG TABLET PO PRN ×2 (05:33→10:06)
[2022-09-01] MEDS: hydrOXYzine PAMOATE 25 MG CAPSULE (FP) PO PRN (10:06)
[2022-09-01] MEDS: PRENATAL VITAMINS W/ FOLIC ACID TABLET (FP) PO SCH (11:09)
[2022-09-01] MEDS: NICOTINE 7 MG/24 HOURS TOPICAL PATCH TD SCH (11:35)
[2022-09-01] MEDS: MAG HYDROX/AL HYDROX/SIMETH 30 ML UNIT-DOSE CUP PO PRN (19:55)
[2022-09-01] MEDS: THIAMINE HCL 100 MG TABLET (FP) PO SCH (22:28)
[2022-09-01] MEDS: SUVOREXANT 10 MG TABLET PO PRN (22:30)
[2022-09-02] MEDS: chlordiazePOXIDE HCL 25 MG CAPSULE PO SCH ×4 (05:30→22:06)
[2022-09-02] MEDS ORDERED: methaDONE HCL 10 MG TABLET (FOR DETOX USE ONLY) PO ONE (10:00)
[2022-09-02] MEDS: PRENATAL VITAMINS W/ FOLIC ACID TABLET (FP) PO SCH (10:11)
[2022-09-02] MEDS: NICOTINE 7 MG/24 HOURS TOPICAL PATCH TD SCH (10:11)
[2022-09-02] MEDS: hydrOXYzine PAMOATE 25 MG CAPSULE (FP) PO PRN (10:12)
[2022-09-02] MEDS: METHOCARBAMOL 500 MG TABLET PO PRN (10:12)
[2022-09-02] MEDS: THIAMINE HCL 100 MG TABLET (FP) PO SCH (22:05)
[2022-09-02] MEDS: SUVOREXANT 10 MG TABLET PO PRN (22:08)
[2022-09-03] MEDS ORDERED: chlordiazePOXIDE HCL 10 MG CAPSULE PO PRN
[2022-09-03] MEDS: chlordiazePOXIDE HCL 10 MG CAPSULE PO SCH ×4 (05:15→22:33)
[2022-09-03] MEDS: METHOCARBAMOL 500 MG TABLET PO PRN ×2 (05:16→17:29)
[2022-09-03] MEDS: hydrOXYzine PAMOATE 25 MG CAPSULE (FP) PO PRN (05:17)
[2022-09-03] MEDS: NICOTINE 7 MG/24 HOURS TOPICAL PATCH TD SCH (10:15)
[2022-09-03] MEDS: PRENATAL VITAMINS W/ FOLIC ACID TABLET (FP) PO SCH (10:15)
[2022-09-03] MEDS: SUVOREXANT 10 MG TABLET PO PRN (22:31)
[2022-09-03] MEDS: THIAMINE HCL 100 MG TABLET (FP) PO SCH (22:31)
[2022-09-04] MEDS ORDERED: chlordiazePOXIDE HCL 10 MG CAPSULE PO SCH (05:00)
[2022-09-04 09:57] VITALS: BP 141/97; PULSE 70; RESP 18; TEMP 98.2
[2022-09-04] MEDS ORDERED: LACTULOSE 20 GM/30 ML UDC (FOR ORAL USE ONLY) PO SCH (10:00)
[2022-09-04] MEDS ORDERED: methaDONE HCL 10 MG TABLET (FOR DETOX USE ONLY) PO ONE (10:00)
[2022-09-04] MEDS: METHOCARBAMOL 500 MG TABLET PO PRN (10:23)
[2022-09-04] MEDS: PRENATAL VITAMINS W/ FOLIC ACID TABLET (FP) PO SCH (10:25)
[2022-09-04] MEDS: NICOTINE 7 MG/24 HOURS TOPICAL PATCH TD SCH (10:25)
[2022-09-04] MEDS: MAG HYDROX/AL HYDROX/SIMETH 30 ML UNIT-DOSE CUP PO PRN (10:58)
[2022-09-05] MEDS ORDERED: chlordiazePOXIDE HCL 10 MG CAPSULE PO ONE (05:00)
== END 2022-09-04 12:05 | disposition home or self-care (01) | DRG 773 ==
LOC: YASAS 09:53 → Y6N 12:55
PROVIDERS: ADMIT Allergy & Immunology; ATTEND Surgery
PROC: HZ2ZZZZ Detoxification Services for Substance Abuse Treatment (ICD-10-PCS; principal; 2022-08-31)
DX: F11.23 Opioid dependence with withdrawal (principal); F10.230 Alcohol dependence with withdrawal, uncomplicated; F19.282 Other psychoactive substance dependence with psychoactive substance-induced sleep disorder; F19.280 Other psychoactive substance dependence with psychoactive substance-induced anxiety disorder; F19.24 Other psychoactive substance dependence with psychoactive substance-induced mood disorder; F31.9 Bipolar disorder, unspecified; F41.9 Anxiety disorder, unspecified; E78.5 Hyperlipidemia, unspecified; I10 Essential (primary) hypertension; J44.9 Chronic obstructive pulmonary disease, unspecified; J45.20 Mild intermittent asthma, uncomplicated; J30.2 Other seasonal allergic rhinitis; N40.0 Benign prostatic hyperplasia without lower urinary tract symptoms; R79.89 Other specified abnormal findings of blood chemistry; Z86.19 Personal history of other infectious and parasitic diseases; Z86.69 Personal history of other diseases of the nervous system and sense organs; Z28.310 Unvaccinated for COVID-19; Z28.9 Immunization not carried out for unspecified reason
CPT/HCPCS: 36415; 80053; 82140; 83036; 85027; 86780; C9803-CS; U0003; U0005

== ENCOUNTER 2023-07-12 10:42 | Inpatient (IN) | payer OTHER ==
[2023-07-12 13:21] VITALS: BMI 33.6
[2023-07-12] MEDS ORDERED: BENZOCAINE/MENTHOL (CHLORASEPTIC ) LOZENGE MM PRN (14:20)
[2023-07-12] MEDS ORDERED: LOPERAMIDE HCL 2 MG CAPSULE PO PRN (14:20)
[2023-07-12] MEDS ORDERED: MAGNESIUM HYDROX 2400MG/30ML ORAL SUSPENSION 30 ML CUP PO PRN (14:20)
[2023-07-12] MEDS ORDERED: guaiFENesin 600 MG TABLET.ER (FP) PO PRN (14:20)
[2023-07-12] MEDS ORDERED: DICYCLOMINE HCL 10 MG CAPSULE PO PRN (14:20)
[2023-07-12] MEDS ORDERED: ONDANSETRON *ODT* 4 MG TABLET SL PRN (14:20)
[2023-07-12] MEDS ORDERED: MAG HYDROX/AL HYDROX/SIMETH 30 ML UNIT-DOSE CUP PO PRN (14:20)
[2023-07-12] MEDS ORDERED: POLYETHYLENE GLYCOL (HEALTHYLAX) 3350 17 GM PACKET PO PRN (14:20)
[2023-07-12] MEDS ORDERED: NALOXONE HCL (KLOXXADO) 8 MG SPRAY NS PRN (14:20)
[2023-07-12] MEDS ORDERED: ACETAMINOPHEN 325 MG TABLET (FP) PO PRN (14:20)
[2023-07-12] MEDS ORDERED: IBUPROFEN 400 MG TABLET (FP) PO PRN (14:20)
[2023-07-12] MEDS ORDERED: METHOCARBAMOL 500 MG TABLET PO PRN (14:20)
[2023-07-12] MEDS ORDERED: NALOXONE HCL 0.4 MG/ML VIAL IM PRN (14:20)
[2023-07-12] MEDS ORDERED: diazePAM 5 MG TABLET PO PRN (14:26)
[2023-07-12] MEDS ORDERED: methaDONE HCL 10 MG TABLET (FOR DETOX USE ONLY) PO ONE (14:26)
[2023-07-12] MEDS: BISMUTH SUBSALICYLATE 262 MG/15 ML BTL PO PRN (14:36)
[2023-07-12] MEDS ORDERED: methaDONE HCL 10 MG TABLET (FOR DETOX USE ONLY) ONE (14:45)
[2023-07-12] MEDS: cloNIDine HCL 0.1 MG TABLET PO PRN (14:49)
[2023-07-12] MEDS: IBUPROFEN 600 MG TABLET (FP) PO PRN (14:50)
[2023-07-12] MEDS ORDERED: cloNIDine HCL 0.1 MG TABLET ONE (14:54)
[2023-07-12] MEDS ORDERED: IBUPROFEN 600 MG TABLET (FP) PO ONE (14:55)
[2023-07-12] MEDS ORDERED: ALBUTEROL SO4 HFA INHALER IH PRN (15:42)
[2023-07-12] MEDS: LORazepam 2 MG TABLET PO SCH ×2 (16:54→22:17)
[2023-07-12] MEDS ORDERED: diazePAM 5 MG TABLET PO SCH (17:00)
[2023-07-12] MEDS ORDERED: MELATONIN 5 MG TABLETS PO SCH (22:00)
[2023-07-12] MEDS: THIAMINE HCL 100 MG TABLET (FP) PO SCH (22:17)
[2023-07-13] MEDS: LORazepam 2 MG TABLET PO SCH ×4 (05:51→22:06)
[2023-07-13] MEDS: LORazepam 1 MG TABLET PO PRN ×2 (09:10→14:31)
[2023-07-13] MEDS: PRENATAL VITAMINS W/ FOLIC ACID TABLET (FP) PO SCH (09:12)
[2023-07-13] MEDS ORDERED: ALBUTEROL SO4 HFA INHALER IH PRN (10:24)
[2023-07-13 10:30] LABS: HEMATOCRIT 40.7 % (35.4-49); HEMOGLOBIN 14.1 GM/dL (11.7-16.9); MCH 28.9 pg (25.7-33.7); MCHC 34.6 g/dl (32.0-35.9); MEAN CELL VOLUME 83.6 fl (80-96); MEAN PLT VOLUME 8.5 fl (7.5-11.1); PLATELET COUNT 188 10^3/uL (134-434); RBC 4.87 M/mm3 (4.00-5.60); RDW 13.9 % (11.9-15.9); WHITE BLOOD COUNT 4.5 K/mm3 (4.0-10.0)
[2023-07-13 14:20] LABS: CHLORIDE 105 mmol/L (98-107); POTASSIUM 4.1 mmol/L (3.5-5.1); SODIUM 138 mmol/L (136-145)
[2023-07-13 14:22] LABS: ALBUMIN 3.9 g/dl (3.4-5.0); ANION GAP 4 mmol/L (4-13); BLOOD UREA NITROGEN 11.3 mg/dL (7-18); CALCIUM 8.8 mg/dL (8.5-10.1); CO2 29 mmol/L (21-32)
[2023-07-13 14:23] LABS: GLUCOSE,RANDOM 108 mg/dL (74-106)
[2023-07-13 14:25] LABS: CREATININE 0.8 mg/dL (0.55-1.3); SGOT/AST 11 U/L (15-37); SGPT/ALT 16 U/L (13-61)
[2023-07-13 14:27] LABS: BILIRUBIN,TOTAL 0.7 mg/dL (0.2-1); TOT PROT 7.3 g/dl (6.4-8.2)
[2023-07-13 14:28] LABS: ALK PHOS 69 U/L (45-117)
[2023-07-13] MEDS: SUVOREXANT 10 MG TABLET PO PRN (22:06)
[2023-07-13] MEDS: cloNIDine HCL 0.1 MG TABLET PO PRN (22:06)
[2023-07-13] MEDS: THIAMINE HCL 100 MG TABLET (FP) PO SCH (22:06)
[2023-07-14] MEDS: LORazepam 1 MG TABLET PO SCH ×4 (05:08→22:20)
[2023-07-14] MEDS ORDERED: diazePAM 5 MG TABLET PO SCH (06:00)
[2023-07-14] MEDS: LORazepam 1 MG TABLET PO PRN ×3 (08:46→19:20)
[2023-07-14] MEDS ORDERED: methaDONE HCL 10 MG TABLET (FOR DETOX USE ONLY) PO ONE (10:00)
[2023-07-14] MEDS: PRENATAL VITAMINS W/ FOLIC ACID TABLET (FP) PO SCH (10:28)
[2023-07-14] MEDS: BISMUTH SUBSALICYLATE 262 MG/15 ML BTL PO PRN (12:23)
[2023-07-14] MEDS: THIAMINE HCL 100 MG TABLET (FP) PO SCH (22:20)
[2023-07-14] MEDS: SUVOREXANT 10 MG TABLET PO PRN (22:22)
[2023-07-15] MEDS ORDERED: LORazepam 0.5 MG TABLET PO PRN
[2023-07-15] MEDS: LORazepam 0.5 MG TABLET PO SCH ×4 (05:51→22:16)
[2023-07-15] MEDS ORDERED: diazePAM 5 MG TABLET PO SCH (06:00)
[2023-07-15] MEDS: PRENATAL VITAMINS W/ FOLIC ACID TABLET (FP) PO SCH (10:15)
[2023-07-15] MEDS: IBUPROFEN 600 MG TABLET (FP) PO PRN ×2 (10:17→17:06)
[2023-07-15] MEDS: THIAMINE HCL 100 MG TABLET (FP) PO SCH (22:16)
[2023-07-15] MEDS: SUVOREXANT 10 MG TABLET PO PRN (22:17)
[2023-07-16] MEDS ORDERED: LORazepam 0.5 MG TABLET PO ONE ×3 (05:00→13:45)
[2023-07-16] MEDS ORDERED: diazePAM 5 MG TABLET PO ONE (06:00)
[2023-07-16] MEDS ORDERED: methaDONE HCL 10 MG TABLET (FOR DETOX USE ONLY) PO ONE (10:00)
[2023-07-16] MEDS: PRENATAL VITAMINS W/ FOLIC ACID TABLET (FP) PO SCH (10:04)
[2023-07-16] MEDS: IBUPROFEN 600 MG TABLET (FP) PO PRN (10:09)
[2023-07-16] MEDS: THIAMINE HCL 100 MG TABLET (FP) PO SCH (22:17)
[2023-07-17] MEDS: BISMUTH SUBSALICYLATE 262 MG/15 ML BTL PO PRN (07:36)
[2023-07-17] MEDS ORDERED: cloNIDine HCL 0.1 MG TABLET PO PRN (08:47)
[2023-07-17 08:59] VITALS: BP 154/104; PULSE 81; RESP 16; TEMP 98
[2023-07-17] MEDS: PRENATAL VITAMINS W/ FOLIC ACID TABLET (FP) PO SCH (09:13)
[2023-07-17] MEDS: amLODIPine BESYLATE 10 MG TABLET (FP) PO SCH ×2 (09:13→09:15)
== END 2023-07-17 09:18 | disposition home or self-care (01) | DRG 773 ==
LOC: YASAS 10:42 → Y6N 15:15
PROVIDERS: ADMIT Allergy & Immunology; ATTEND Surgery
PROC: HZ2ZZZZ Detoxification Services for Substance Abuse Treatment (ICD-10-PCS; principal; 2023-07-12)
DX: F11.23 Opioid dependence with withdrawal (principal); F10.230 Alcohol dependence with withdrawal, uncomplicated; F19.282 Other psychoactive substance dependence with psychoactive substance-induced sleep disorder; F19.24 Other psychoactive substance dependence with psychoactive substance-induced mood disorder; F31.9 Bipolar disorder, unspecified; I10 Essential (primary) hypertension; J45.20 Mild intermittent asthma, uncomplicated; J44.9 Chronic obstructive pulmonary disease, unspecified; Z86.69 Personal history of other diseases of the nervous system and sense organs; Z86.19 Personal history of other infectious and parasitic diseases; Z62.810 Personal history of physical and sexual abuse in childhood; Z28.310 Unvaccinated for COVID-19; Z28.9 Immunization not carried out for unspecified reason
CPT/HCPCS: 36415; 80053; 80307; 82140; 85027; 86780; 87635; 93005; 93010; Q0162